=== PATIENT | female | born 1950 | race Caucasian/White ===

== ENCOUNTER → 2017-08-30 13:24 | Outpatient (CLI) | payer OTHER, SELFPAY ==
[2017-08-30 14:25] LABS: Add Manual Diff / Slide Review NO; Basophils Percent Auto 0.9 % (0-2); Eosinophils Percent Auto 3.3 % (2-4); Hematocrit 39.2 % (36-46); Hemoglobin 13.2 g/dL (12.0-16.0); Lymphocytes Percent Auto 17.7 % (25-40); Mean Corpuscular HGB Conc 33.8 % (30-36); Mean Corpuscular Hemoglobin 29.8 PG (26-34); Mean Corpuscular Volume 88.4 fL (80-100); Monocytes Percent Auto 9.9 % (3-14); Neutrophils Absolute Auto 4400 /uL (3000-5900); Neutrophils Percent Auto 68.2 % (50-75); Platelet Count 315 X10^3/uL (150-400); Red Blood Cell Count 4.44 X10^6/uL (4.0-5.2); Red Cell Distribution Width 13.2 % (11.6-14.8); White Blood Cell Count 6.4 X10^3/uL (4.5-11.0)
[2017-08-30 14:48] LABS: Alanine Aminotransferase 28 IU/L (9-52); Albumin 4.4 g/dL (3.5-5.0); Albumin Globulin Ratio 1.6 (1.0-2.8); Alkaline Phosphatase 91 U/L (38-126); Amylase 73 U/L (30-110); Aspartate Aminotransferase 24 IU/L (14-36); BUN Creatinine Ratio 21.3 (6-22); Bilirubin Total 0.3 mg/dL (0.2-1.3); Calcium 9.3 mg/dL (8.4-10.2); Estimated Glomerular Filt Rate > 60.0 mL/min (>60); Globulin 2.7 g/dL (1.7-4.1); Glucose 88 mg/dL (80-110); HEMOLYSIS < 15 (0-50); Lipase 114 U/L (23-300); Potassium 4.3 mmol/L (3.4-5.1); Sodium 141 mmol/L (137-145); Total Protein 7.1 g/dL (6.3-8.2)
[2017-09-03 13:01] LABS: Urea Breath Test >18YRS Not Detected
== END ==
PROVIDERS: Family Provider Family Medicine; PCP Family Medicine; Visit Provider Family Medicine
DX: R10.11 Right upper quadrant pain (principal)
CPT/HCPCS: 36415; 80053; 82150; 83013; 83690; 85025

== ENCOUNTER → 2017-09-06 13:10 | Outpatient (CLI) | payer OTHER, SELFPAY ==
--- NOTE | 2017-09-06 13:11 | DI.US.S_ITS ---
PROCEDURE: US ABDOMEN COMPLETE INDICATIONS: RIGHT UPPER QUADRANT ABDOMINAL PAIN TECHNIQUE: Real-time scanning was performed of the abdominal and retroperitoneal organs, with image documentation. COMPARISON: None. FINDINGS: Liver: Liver is normal in size and homogeneous in echotexture. Gallbladder: There is has multiple calculi within its lumen Biliary ducts: Intrahepatic bile ducts are non-dilated. Extrahepatic bile duct caliber measures 4.0 mm. Normal is 6-7 mm or less in diameter, or 10 mm or less post-cholecystectomy. Pancreas: Visualized portions of the pancreas are sonographically normal. Spleen: Spleen is normal in size and homogeneous in echotexture. Kidneys: Kidneys are normal in size and echotexture. Right kidney measures 8.7 cm long; left kidney measures 9.6 cm long. No hydronephrosis or nephrolithiasis. No solid masses. Aorta: Visualized aorta is normal in caliber at less than 3 cm. Iliacs: Proximal common iliac arteries are normal in caliber at less than 2.5 cm. IVC: Intrahepatic inferior vena cava is patent. Miscellaneous: No free abdominal fluid. IMPRESSION: 1. Cholelithiasis. No evidence of cholecystitis. 2. No acute process. Dictated by: Heriberto Shaffer M.D. on 09/06/2017 at 15:32 Approved by: Heriberto Shaffer M.D. on 09/06/2017 at 15:33
== END ==
PROVIDERS: Family Provider Family Medicine; PCP Family Medicine; Visit Provider Family Medicine
DX: K80.20 Calculus of gallbladder without cholecystitis without obstruction (principal)
CPT/HCPCS: 76700

== ENCOUNTER → 2017-10-22 11:13 | Outpatient (CLI) | payer MEDICARE, OTHER, SELFPAY ==
--- NOTE | 2017-10-22 | DI.MG.S_ITS ---
BILATERAL DIGITAL SCREENING MAMMOGRAM 3D/2D WITH CAD: 10/22/2017 CLINICAL: Routine screening. Comparison is made to exams dated: 09/12/2016 mammogram, 09/21/2015 mammogram, 03/04/2015 mammogram, and 02/15/2015 mammogram - [facility]. The tissue of both breasts is heterogeneously dense. This may lower the sensitivity of mammography. Current study was also evaluated with a Computer Aided Detection (CAD) system. No significant masses, calcifications, or other findings are seen in either breast. There has been no significant interval change. IMPRESSION: NEGATIVE There is no mammographic evidence of malignancy. A 1 year screening mammogram is recommended. This exam was interpreted at Station ID: [id number]. NOTE: For mammograms, a report in lay terms will be sent to the patient. Approximately 15% of breast malignancies will not be visualized mammographically. In the management of a palpable breast mass, a negative mammogram must not discourage biopsy of a clinically suspicious lesion. Electronically Signed By: Raciel hinton/andre:10/22/2017 16:06:58 copy to: Patricia Kumar letter sent: Normal Exam ACR BI-RADS Category 1: Negative [id number]
== END ==
PROVIDERS: Family Provider Family Medicine; PCP Family Medicine; Visit Provider Family Medicine
DX: Z12.31 Encounter for screening mammogram for malignant neoplasm of breast (principal)
CPT/HCPCS: 77063; 77067

== ENCOUNTER → 2017-11-07 12:34 | Outpatient (CLI) | payer MEDICARE, OTHER, SELFPAY ==
[2017-11-07 13:53] LABS: Cholesterol 175 mg/dL (140-199); HDL Cholesterol 42 mg/dL (40-60); LDL Cholesterol Calculated 83 mg/dL (<100); Triglycerides 252 mg/dL (35-150)
== END ==
PROVIDERS: Family Provider Family Medicine; PCP Family Medicine; Visit Provider Family Medicine
DX: E78.5 Hyperlipidemia, unspecified (principal)
CPT/HCPCS: 36415; 80061

== ENCOUNTER → 2018-07-01 14:10 | Outpatient (CLI) | payer MEDICARE, OTHER, SELFPAY ==
--- NOTE | 2018-07-01 14:31 | DI.CT.S_ITS ---
PROCEDURE: CT SINUS SCREEN WO CON INDICATIONS: Chronic sinusitis TECHNIQUE: Noncontrast 3.0 mm axial images acquired from the frontal sinuses to the mid-sella, with coronal and sagittal reformats. For radiation dose reduction, the following was used: automated exposure control, adjustment of mA and/or kV according to patient size. COMPARISON: None. FINDINGS: Image quality: Excellent. Maxillary Sinuses: No bony remodeling or destruction. Sinuses are clear. Ethmoid Air Cells: No bony remodeling or destruction. Sinuses are clear. Sphenoid Sinuses: No bony remodeling or destruction. Sinuses are clear. Frontal Sinuses: No bony remodeling or destruction. Left frontal sinus clear. Hypoplastic right frontal sinus. Ostiomeatal Complexes: Ostiomeatal complexes are patent. No Pat cells. Miscellaneous: Visualized intra-orbital contents are normal. No fahad bullosa or paradoxical turbinate curvature. Slight leftward nasal septal deviation. IMPRESSION: Clear sinuses. Dictated by: Joshua Giordano M.D. on 07/01/2018 at 17:19 Approved by: Joshua Giordano M.D. on 07/01/2018 at 17:21
== END ==
PROVIDERS: PCP Family Medicine; Visit Provider Family Medicine
DX: J32.9 Chronic sinusitis, unspecified (principal); J32.0 Chronic maxillary sinusitis
CPT/HCPCS: 70486

== ENCOUNTER → 2018-07-31 15:23 | Outpatient (CLI) | payer MEDICARE, OTHER, SELFPAY ==
--- NOTE | 2018-07-31 15:27 | DI.RAD.S_ITS ---
PROCEDURE: XR CHEST 2V INDICATIONS: cough TECHNIQUE: 2 views of the chest were acquired. COMPARISON: None. FINDINGS: Surgical changes and devices: None. Lungs and pleura: Lungs are clear. No pleural effusions or pneumothorax. Mediastinum: Mediastinal contours are normal. Heart size is normal. Bones and chest wall: No suspicious bony abnormalities. Soft tissues appear unremarkable. IMPRESSION: Normal for age, source of current cuff symptoms is not seen. Dictated by: Rhett Stockton M.D. on 07/31/2018 at 15:54 Approved by: Rhett Stockton M.D. on 07/31/2018 at 15:54
[2018-07-31 16:11] LABS: Add Manual Diff / Slide Review NO; Basophils Absolute Auto 100 /uL (0-100); Basophils Percent Auto 0.9 % (0-2); Eosinophils Absolute Auto 200 /uL (0-450); Eosinophils Percent Auto 2.4 % (2-4); Hematocrit 38.8 % (36-46); Hemoglobin 12.9 g/dL (12.0-16.0); Lymphocytes Absolute Auto 1200 /uL (1100-4500); Mean Corpuscular HGB Conc 33.1 % (30-36); Mean Corpuscular Hemoglobin 29.6 PG (26-34); Mean Corpuscular Volume 89.3 fL (80-100); Monocytes Absolute Auto 700 /uL (0-900); Monocytes Percent Auto 8.3 % (3-14); Neutrophils Absolute Auto 6200 /uL (1500-7000); Neutrophils Percent Auto 74.4 % (50-75); Platelet Count 332 X10^3/uL (150-400); Red Blood Cell Count 4.35 X10^6/uL (4.0-5.2); Red Cell Distribution Width 13.4 % (11.6-14.8); White Blood Cell Count 8.3 X10^3/uL (4.5-11.0)
[2018-07-31 17:01] LABS: Alanine Aminotransferase 23 IU/L (9-52); Albumin 4.4 g/dL (3.5-5.0); Albumin Globulin Ratio 1.8 (1.0-2.8); Alkaline Phosphatase 79 U/L (38-126); Aspartate Aminotransferase 23 IU/L (14-36); Bilirubin Total 0.4 mg/dL (0.2-1.3); Blood Urea Nitrogen 16 mg/dL (7-17); Calcium 9.4 mg/dL (8.4-10.2); Carbon Dioxide 26 mmol/L (22-32); Chloride 104 mmol/L (98-107); Estimated Glomerular Filt Rate > 60.0 mL/min (>60); Globulin 2.5 g/dL (1.7-4.1); Glucose 88 mg/dL (80-110); HEMOLYSIS < 15 (0-50); Potassium 4.6 mmol/L (3.4-5.1); Sodium 139 mmol/L (137-145); Total Protein 6.9 g/dL (6.3-8.2)
[2018-07-31 17:32] LABS: Thyroid Stimulating Hormone 2.96 uIU/mL (0.47-4.68)
== END ==
PROVIDERS: PCP Family Medicine; Visit Provider Family Medicine
DX: R05 Cough (principal)
CPT/HCPCS: 36415; 71046; 80053; 84443; 85025

== ENCOUNTER → 2018-09-23 10:03 | Outpatient (CLI) | payer MEDICARE, OTHER, SELFPAY ==
[2018-09-23 10:42] LABS: Add Manual Diff / Slide Review NO; Basophils Absolute Auto 100 /uL (0-100); Eosinophils Absolute Auto 200 /uL (0-450); Eosinophils Percent Auto 2.5 % (2-4); Hematocrit 39.3 % (36-46); Hemoglobin 13.2 g/dL (12.0-16.0); Lymphocytes Absolute Auto 900 /uL (1100-4500); Lymphocytes Percent Auto 14.6 % (25-40); Mean Corpuscular HGB Conc 33.5 % (30-36); Mean Corpuscular Hemoglobin 29.8 PG (26-34); Monocytes Absolute Auto 600 /uL (0-900); Monocytes Percent Auto 9.4 % (3-14); Neutrophils Absolute Auto 4700 /uL (1500-7000); Neutrophils Percent Auto 72.5 % (50-75); Platelet Count 320 X10^3/uL (150-400); Red Blood Cell Count 4.41 X10^6/uL (4.0-5.2); Red Cell Distribution Width 13.3 % (11.6-14.8); White Blood Cell Count 6.5 X10^3/uL (4.5-11.0)
[2018-09-23 10:49] LABS: Monotest Negative (Negative)
[2018-09-23 11:04] LABS: Alanine Aminotransferase 27 IU/L (9-52); Albumin 4.4 g/dL (3.5-5.0); Albumin Globulin Ratio 1.7 (1.0-2.8); Alkaline Phosphatase 84 U/L (38-126); Aspartate Aminotransferase 25 IU/L (14-36); BUN Creatinine Ratio 18.9 (6-22); Bilirubin Total 0.5 mg/dL (0.2-1.3); Blood Urea Nitrogen 17 mg/dL (7-17); Calcium 9.4 mg/dL (8.4-10.2); Carbon Dioxide 29 mmol/L (22-32); Chloride 102 mmol/L (98-107); Estimated Glomerular Filt Rate > 60.0 mL/min (>60); Globulin 2.6 g/dL (1.7-4.1); Glucose 93 mg/dL (80-110); HEMOLYSIS < 15 (0-50); Potassium 4.1 mmol/L (3.4-5.1); Sodium 138 mmol/L (137-145)
[2018-09-23 11:05] LABS: C-Reactive Protein Quant < 0.5 mg/dL (<1.0); Rheumatoid Factor < 8.6 IU/mL (<12.0)
[2018-09-23 11:08] LABS: Erythrocyte Sedimentation Rate 5 MM/HR (0-20)
[2018-09-26 20:02] LABS: ANA Screen, IFA Positive (Negative)
== END ==
PROVIDERS: PCP Family Medicine; Visit Provider Family Medicine
DX: R59.1 Generalized enlarged lymph nodes (principal)
CPT/HCPCS: 36415; 80053; 85025; 85651; 86038; 86140; 86318; 86430

== ENCOUNTER → 2018-10-24 15:23 | Outpatient (CLI) | payer MEDICARE, OTHER, SELFPAY ==
--- NOTE | 2018-10-24 | DI.MG.S_ITS ---
BILATERAL DIGITAL SCREENING MAMMOGRAM 3D/2D WITH CAD: 10/24/2018 CLINICAL: Routine screening. Comparison is made to exams dated: 10/22/2017 mammogram, 09/12/2016 mammogram, and 02/15/2015 mammogram - [facility]. There are scattered fibroglandular elements in both breasts. Current study was also evaluated with a Computer Aided Detection (CAD) system. No significant masses, calcifications, or other findings are seen in either breast. There has been no significant interval change. IMPRESSION: NEGATIVE There is no mammographic evidence of malignancy. A 1 year screening mammogram is recommended. This exam was interpreted at Station ID: [id number]. NOTE: For mammograms, a report in lay terms will be sent to the patient. Approximately 15% of breast malignancies will not be visualized mammographically. In the management of a palpable breast mass, a negative mammogram must not discourage biopsy of a clinically suspicious lesion. Electronically Signed By: Jules miller/andre:10/24/2018 18:59:19 copy to: Patricia Kumar letter sent: Normal Exam ACR BI-RADS Category 1: Negative [id number]
== END ==
PROVIDERS: PCP Family Medicine; Visit Provider Family Medicine
DX: Z12.31 Encounter for screening mammogram for malignant neoplasm of breast (principal)
CPT/HCPCS: 77063; 77067

== ENCOUNTER 2019-07-17 00:59 | Emergency (ER) | payer MEDICARE, OTHER, SELFPAY ==
--- NOTE | 2019-07-17 01:00 | ED_ITS ---
HPI - Skin/Abscess/Foreign Bdy General Chief complaint: Extremity Problem,Nontraumatic Stated complaint: cellulitis infection Time Seen by Provider: 07/17/19 01:00 Source: patient Mode of arrival: Ambulatory Limitations: no limitations History of Present Illness HPI narrative: 68-year-old female nonsmoker with noncontributory medical history presents by herself a chief complaint redness, pain and swelling in her right thumb. She denies any injury and states that she was seen at the walk-in clinic today and diagnosed with cellulitis, placed on doxycycline of which she has had 1 dose. She refused an x-ray earlier today and was encouraged to return or come to the emergency department for worsening symptoms. She denies any systemic findings such as fever, chills nor nausea or vomiting. She denies any history of the same. She states that she had a crack in the skin in the tip of her thumb about a week or so ago. She complains of increasing pain with range of motion and improvement with rest. She is able to flex and move her but is limited by the swelling. She states she was preparing to go to bed but was worried that it was getting worse and came to see us MD complaint: other Onset (ago): day(s) Tetanus up to date: yes Location: R hand Severity: mild Quality: aching Pain Consistency: constant Relieving factors: immobilization Exacerbating factors: palpation and movement Context: recent antibiotic Associated symptoms: denies other symptoms Treatments prior to arrival: antibiotic and NSAID Related Data Home Medications Medication Instructions Recorded Confirmed dorzolamide 2 % eye drops OPHTHALMIC (EYE) BID ml 11/07/17 07/16/19 ibuprofen 200 mg capsule 400 mg PO .HS cap 11/07/17 07/16/19 metronidazole 1 % topical gel TOP #180 gram 07/31/18 07/16/19 trazodone 50 mg tablet 50 mg PO BEDTIME PRN tab 12/06/18 07/16/19 Previous Rx's Medication Instructions Recorded azelastine 137 mcg (0.1 %) nasal 1 spray NASAL BID #30 ml 02/12/19 spray aerosol Climara 0.05 mg/24 hr transdermal See Rx Instructions .ROUTE 07/15/19 patch .COMPLEX #12 each NS doxycycline hyclate 100 mg capsule 100 mg PO BID 7 Days #14 cap 07/16/19 Allergies Allergy/AdvReac Type Severity Reaction Status Date / Time codeine [CODEINE] Allergy Mild NAUSEA Verified 07/16/19 16:44 Sulfa (Sulfonamide Allergy Mild RASH Verified 07/16/19 16:44 Antibiotics) [SULFA (SULFONAMIDE ANTIBIOTICS)] Review of Systems Constitutional Constitutional: Denies chills, Denies fatigue, Denies fever(s), Denies frequent falls, Denies lethargy and Denies weakness Eyes Eyes: Denies change in vision, Denies eye discharge, Denies irritation and Denies loss of vision ENT Ears, Nose, Mouth, and Throat: Denies change in voice, Denies dizziness, Denies neck pain, Denies sore throat and Denies throat swelling Cardiovascular Cardiovascular: Denies chest pain, Denies irregular heart rhythm, Denies lightheadedness, Denies palpitations, Denies dyspnea, Denies dyspnea on exertion and Denies orthopnea Respiratory Respiratory: Denies cough, Denies dyspnea, Denies dyspnea on exertion and Denies wheezing Gastrointestinal Gastrointestinal: Denies abdominal pain, Denies change in bowel habits, Denies diarrhea, Denies nausea and Denies vomiting Genitourinary Genitourinary: Denies hematuria, Denies flank pain, Denies urinary incontinence and Denies urinary urgency Musculoskeletal Musculoskeletal: Denies back pain, Denies muscle weakness, Denies neck pain, Denies numbness and Denies tingling Integumentary/Breasts Skin/Breast: Denies pruritus, Reports erythema, Denies rash, Reports skin pain, Reports skin swelling and Denies wounds Neurologic Neurologic: Denies behavioral changes, Denies confusion, Denies dizziness, Denies frequent falls, Denies loss of vision, Denies numbness, Denies tingling and Denies weakness Psychiatric Psychiatric: Denies anxiety, Denies behavioral changes, Denies confusion, Denies depression, Denies homicidal ideation and Denies suicidal ideation Endocrine Endocrine: Denies fatigue, Denies flushing and Denies palpitations Hematologic/Lymphatic Hematologic/Lymphatic: Denies easy bruising Allergic/Immunologic Allergic/Immunologic: Denies urticaria, Denies throat swelling and Denies wheezing Patient History Medical History Cellulitis (Acute) Chicken pox (Resolved ~1959) Frequent UTI (Chronic ~1972) Glaucoma (Chronic ~2012) Hay fever (Chronic ~2003) Interstitial cystitis (Chronic ~1969) Measles (Resolved ~1959) Neck pain (Chronic ~2013) Ovarian cyst (Chronic ~1979) Pain of right thumb (Acute) Pneumothorax (Chronic) Raynauds disease (Chronic ~2011) Recurrent sinusitis (Chronic ~1995) Skin cancer, basal cell (Chronic ~2009) Surgical History History of bilateral salpingo-oophorectomy (BSO) History of tonsillectomy Status post appendectomy Status post dilation and curettage Status post dilation and curettage Status post dilation and curettage Status post hysterectomy Status post tubal ligation Family History Brother Age: 72 Multiple myeloma Agent orange exposure Father Arthritis Dementia Mother Mental health problem Alcoholism Social History Smoking Status: Never smoker alcohol intake: never substance use type: does not use Smoking Status: Never smoker Exam Narrative Exam Narrative: GEN: 68F appears younger than stated age, she is AOx3 and in mild distress. Obviously anxious. EYES: Pupils are equal, round, and reactive to light and accommodation. Extraoccular muscles are intact bilaterally. There is no subconjunctival hemorrhage or exudate. CHEST: Lungs are clear to auscultation bilaterally and free of wheezes, rales, or rhonchi. Heart rate is regular rhythm, there are no murmurs, clicks, rubs, or gallops. There is no chest wall tenderness. ABD: Abdomen is soft and nontender. There is no guarding or rebound. Bowel sounds are normal in all 4 quadrants. There is no mass or organomegaly. EXT: Right thumb with some pain, mild erythema, and moderate swelling. She has no pain along distribution of flexor tendon. No pain to palpation of palmar surface. Painless flexion of thumb, full ROM limited by swelling. No obvious break in the skin, no induration or fluctuance. No pain on passive extention. No sausage finger. SKIN: Warm, pink, and dry. No erythema or rash Initial Vital Signs Initial Vital Signs: Vital Signs Temperature 98.2 F 07/17/19 01:04 Pulse Rate 100 H 07/17/19 01:04 Respiratory Rate 18 07/17/19 01:04 Blood Pressure 225/107 H 07/17/19 01:04 Pulse Oximetry 98 07/17/19 01:04 Course Orders Ordered: ED Orders 07/17/19 01:06 XR finger RT min 2V Stat 07/17/19 01:15 Basic Metabolic Panel Stat C-Reactive Protein Quant Stat Complete Blood Count AUTO DIFF Stat Erythrocyte Sedimentation Rate Stat Uric Acid Stat Discontinued Medications Ibuprofen (Advil) 800 mg PO NOW ONE Stop: 07/17/19 01:08 Last Admin: 07/17/19 01:11 Dose: 800 mg Documented by: RAIZA Vital Signs Vital signs: Vital Signs - 8 hr 07/17/19 01:04 07/17/19 02:27 Temperature 98.2 F Pulse Rate 100 H 88 Respiratory Rate 18 18 Blood Pressure 225/107 H 170/74 H Pulse Oximetry 98 98 MDM - Skin/Abscess/Foreign Bdy Lab Data Result diagrams: 07/17/19 01:15 07/17/19 01:15 Labs: Lab Results 07/17/19 07/17/19 Range/Units 01:15 01:15 WBC 7.9 (4.5-11.0) X10^3/uL RBC 4.21 (4.0-5.2) X10^6/uL Hgb 12.6 (12.0-16.0) g/dL Hct 37.6 (36-46) % MCV 89.2 (80-100) fL MCH 29.8 (26-34) PG MCHC 33.4 (30-36) % RDW 13.6 (11.6-14.8) % Plt Count 267 (150-400) X10^3/uL Neut % (Auto) 69.6 (50-75) % Lymph % (Auto) 14.6 L (25-40) % [place] % (Auto) 12.1 (3-14) % Eos % (Auto) 3.1 (2-4) % Baso % (Auto) 0.6 (0-2) % Neut # (Auto) 5500 (5030-1121) /uL Lymph # (Auto) 1100 (5490-9657) /uL [place] # (Auto) 1000 H (0-900) /uL Eos # (Auto) 200 (0-450) /uL Baso # (Auto) 0 (0-100) /uL ESR 10 (0-20) MM/HR Sodium 138 (137-145) mmol/L Potassium 3.6 (3.4-5.1) mmol/L Chloride 105 (98-107) mmol/L Carbon Dioxide 26 (22-32) mmol/L BUN 20 H (7-17) mg/dL Creatinine 0.82 (0.52-1.04) mg/dL Estimated GFR > 60.0 (>60) mL/min BUN/Creatinine Ratio 24.4 H (6-22) Glucose 109 (80-110) mg/dL Uric Acid 4.0 (2.5-6.2) mg/dL Calcium 9.6 (8.4-10.2) mg/dL C-Reactive Protein 1.0 (<1.0) mg/dL Imaging Data Extremity x-ray #1: Attestation: I personally reviewed and interpreted this imaging study as follows: My Impression: No obvious findings consistent with osteo MDM Narrative Medical decision making narrative: Multiple etiologies for patient's symptoms considered including: [flexor tenosynovitis considered but thought less likely given lack of exam findings, cellulitis considered most likely given exam. Gouty arthritis] Patient's symptoms improved or duration of stay with above-stated therapies. Findings and discharge diagnosis discussed with patient/family followed by verb alization of understanding Return precautions discussed with patient/family whom verbalize understanding. Discharge Plan Departure Patient Disposition: Home Clinical Impression: Pain of right thumb Cellulitis Qualifiers: Site of cellulitis: extremity Site of cellulitis of extremity: finger Laterality: right Qualified Code(s): L03.011 - Cellulitis of right finger Discharge Date/Time: 07/17/19 02:29 Instructions: DI for Cellulitis -- Adult Activity Restrictions/Additional Instructions: *You have been diagnosed with [cellulitis of right thumb] *What to do: *Continue ot take medications as directed *Follow up with your primary care provider in 2-3 days, call for an appointment. Let them know you were seen in the Emergency Department and that we ask that you be seen in follow up *Return to ER if you should have any new, worsening or concerning symptoms, such as [fever, shaking chills, nausea/vomiting, shortness of breath, worsening pain and swelling of your thumb, or other bothersome symptoms ] Prescriptions: No Action doxycycline hyclate 100 mg capsule 100 mg PO BID 7 Days Qty: 14 RF: 0 azelastine 137 mcg (0.1 %) aerosol,spray 1 spray NASAL BID Qty: 30 RF: 1 estradiol [Climara] 0.05 mg/24 hr patch weekly See Rx Instructions .ROUTE .COMPLEX Qty: 12 RF: 3 metronidazole 1 % gel TOP Qty: 180 RF: 0 trazodone 50 mg tablet 50 mg PO BEDTIME PRNRF: 0 dorzolamide 2 % drops ophthalmic (eye) BID RF: 0 ibuprofen 200 mg capsule 400 mg PO .HS RF: 0 Referrals: Santino Kumar MD [Primary Care Provider] -
[2019-07-17 01:04] VITALS: BP 225/107; PULSE 100; RESP 18; TEMP 36.8; O2SAT 98
--- NOTE | 2019-07-17 01:06 | DI.RAD.S_ITS ---
PROCEDURE: XR FINGER RT MIN 2V INDICATIONS: thumb pain, redness, osteo? TECHNIQUE: AP hand, 2 views of the first finger(s) acquired. COMPARISON: None. FINDINGS: Bones: No fractures or dislocations. No suspicious bony lesions. No underlying osteomyelitis or foreign body is seen. Mild soft tissue swelling over the thumb Soft tissues: No suspicious soft tissue calcifications. IMPRESSION: Mild soft tissue swelling over the thumb, no osteomyelitis or foreign body seen. 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 Dictated by: Rhett Stockton M.D. on 07/17/2019 at 8:21 Approved by: Rhett Stockton M.D. on 07/17/2019 at 8:22
[2019-07-17] MEDS: IBUPROFEN 400 MG TABLET 800 MG PO (01:11)
[2019-07-17 01:32] LABS: Add Manual Diff / Slide Review NO; Basophils Absolute Auto 0 /uL (0-100); Basophils Percent Auto 0.6 % (0-2); Eosinophils Absolute Auto 200 /uL (0-450); Eosinophils Percent Auto 3.1 % (2-4); Hematocrit 37.6 % (36-46); Hemoglobin 12.6 g/dL (12.0-16.0); Lymphocytes Absolute Auto 1100 /uL (1100-4500); Lymphocytes Percent Auto 14.6 % (25-40); Mean Corpuscular HGB Conc 33.4 % (30-36); Mean Corpuscular Hemoglobin 29.8 PG (26-34); Mean Corpuscular Volume 89.2 fL (80-100); Monocytes Absolute Auto 1000 /uL (0-900); Monocytes Percent Auto 12.1 % (3-14); Neutrophils Absolute Auto 5500 /uL (1500-7000); Neutrophils Percent Auto 69.6 % (50-75); Platelet Count 267 X10^3/uL (150-400); Red Blood Cell Count 4.21 X10^6/uL (4.0-5.2); Red Cell Distribution Width 13.6 % (11.6-14.8); White Blood Cell Count 7.9 X10^3/uL (4.5-11.0)
[2019-07-17 01:45] LABS: BUN Creatinine Ratio 24.4 (6-22); Blood Urea Nitrogen 20 mg/dL (7-17); Calcium 9.6 mg/dL (8.4-10.2); Carbon Dioxide 26 mmol/L (22-32); Chloride 105 mmol/L (98-107); Estimated Glomerular Filt Rate > 60.0 mL/min (>60); Glucose 109 mg/dL (80-110); HEMOLYSIS < 15 (0-50); Potassium 3.6 mmol/L (3.4-5.1); Sodium 138 mmol/L (137-145)
[2019-07-17 01:51] LABS: Erythrocyte Sedimentation Rate 10 MM/HR (0-20)
[2019-07-17 02:27] VITALS: BP 170/74; PULSE 88; RESP 18; O2SAT 98
== END 2019-07-17 02:29 | disposition home or self-care (01) ==
PROVIDERS: Emergency Provider Emergency Medicine; PCP Family Medicine
DX: L03.011 Cellulitis of right finger (principal); M79.644 Pain in right finger(s)
CPT/HCPCS: 36415; 73140; 80048; 84550; 85025; 85651; 86140; 99284

== ENCOUNTER 2019-07-18 05:10 | Inpatient (IN) | payer MEDICARE, OTHER, SELFPAY ==
[2019-07-18] VITALS (7 sets, daily range): BP systolic 157–181; BP diastolic 76–91; PULSE 70–92; RESP 14–16; TEMP 36.4–37.2; O2SAT 94–99; BMI 25.0; BMI 24.7
--- NOTE | 2019-07-18 05:12 | DI.CT.S_ITS ---
PROCEDURE: CT UE RT W CON INDICATIONS: worsening pain swelling hand/wrist, abscess vs. cellulitis TECHNIQUE: After the administration of intravenous contrast, 3 mm axial sections acquired of the right forearm and wrist extending into the hand area, with coronal and sagittal reformats. COMPARISON: [facility], CR, XR FINGER RT MIN 2V, 07/17/2019, 1:10. FINDINGS: Image quality: Excellent. Bones: No trauma or osteomyelitis found. Soft tissues: There is edema within the volar across the wrist are involving the flexor tendons, producing increased radiodensity within the flexor tendon sheaths and indistinct margination between individual sheath in the flexor compartment. No rim-enhancing fluid collection suggestive of osteomyelitis is found. IMPRESSION: Flexor compartment inflammatory changes at the distal forearm and wrist, without abscess formation, foreign body, or adjacent osteomyelitis. Dictated by: Rhett Stockton M.D. on 07/18/2019 at 8:17 Approved by: Rhett Stockton M.D. on 07/18/2019 at 8:21
--- NOTE | 2019-07-18 05:16 | ED_ITS ---
HPI - Skin/Abscess/Foreign Bdy General Chief complaint: Extremity Injury, Upper Stated complaint: cellulitis infection Time Seen by Provider: 07/18/19 05:10 Source: patient Mode of arrival: Ambulatory Limitations: no limitations History of Present Illness HPI narrative: 68F nonsmoker returns for re-evaluation of R thumb and hand pain, redness, and swelling. She was seen in the walk in clinic on and was di agnosed with cellulitis of her R thumb. She is R handed. She had a crack in the skin of her thumb a week or so prior. She was put on Doxycycline and given return precautions. She was seen her in the ED yesterday morning and had labs drawn and an Xray. Findings were reassuring and she had no signs of osteomyelitis or tenosynovitis. She was given return precautions. She returns stating that her thumb and wrist are more swollen and painful. Though not held in flexion, she does have increased swelling and painful passive range of motion and increased pain along distribution of flexor tendon. She has increased pain and swelling on volar aspect of wrist. She's had no fever, but admits to chills last night and the pain keeps her up. Last liquids and last food at MD complaint: abscess/boil Onset (ago): day(s) Tetanus up to date: yes Location: R hand Severity: moderate Quality: aching Pain Consistency: constant Relieving factors: rest Exacerbating factors: palpation and movement Associated symptoms: chills Treatments prior to arrival: antibiotic Related Data Home Medications Medication Instructions Recorded Confirmed dorzolamide 2 % eye drops 1 drp OPHTHALMIC (EYE) BID ml 11/07/17 07/18/19 ibuprofen 200 mg capsule 400 mg PO .HS cap 11/07/17 07/18/19 metronidazole 1 % topical gel 1 applic TOP PRN PRN #180 gram 07/31/18 07/18/19 trazodone 50 mg tablet 50 mg PO BEDTIME PRN tab 12/06/18 07/18/19 azelastine 1 spray NASAL BID PRN 07/18/19 07/18/19 Previous Rx's Medication Instructions Recorded Climara 0.05 mg/24 hr transdermal See Rx Instructions .ROUTE 07/15/19 patch .COMPLEX #12 each NS doxycycline hyclate 100 mg capsule 100 mg PO BID 7 Days #14 cap 04/01/20 Allergies Allergy/AdvReac Type Severity Reaction Status Date / Time Sulfa (Sulfonamide Allergy Mild RASH Verified 07/18/19 08:51 Antibiotics) [SULFA (SULFONAMIDE ANTIBIOTICS)] codeine [CODEINE] AdvReac Mild NAUSEA Verified 07/18/19 17:26 Review of Systems Constitutional Constitutional: Reports chills, Denies fatigue, Denies fever(s), Denies frequent falls, Denies lethargy and Denies weakness Eyes Eyes: Denies change in vision, Denies eye discharge, Denies irritation and Denies loss of vision ENT Ears, Nose, Mouth, and Throat: Denies change in voice, Denies dizziness, Denies neck pain, Denies sore throat and Denies throat swelling Cardiovascular Cardiovascular: Denies chest pain, Denies irregular heart rhythm, Denies li ghtheadedness, Denies palpitations, Denies dyspnea, Denies dyspnea on exertion and Denies orthopnea Respiratory Respiratory: Denies cough, Denies dyspnea, Denies dyspnea on exertion and Denies wheezing Gastrointestinal Gastrointestinal: Denies abdominal pain, Denies change in bowel habits, Denies diarrhea, Denies nausea and Denies vomiting Genitourinary Genitourinary: Denies hematuria, Denies flank pain, Denies urinary incontinence and Denies urinary urgency Musculoskeletal Musculoskeletal: Denies back pain, Reports joint swelling, Reports limited range of motion, Denies muscle weakness, Denies neck pain, Denies numbness and Denies tingling Integumentary/Breasts Skin/Breast: Denies pruritus, Reports erythema, Denies rash, Reports skin pain, Reports skin swelling and Denies wounds Neurologic Neurologic: Denies behavioral changes, Denies confusion, Denies dizziness, Denies frequent falls, Denies loss of vision, Denies numbness, Denies tingling and Denies weakness Psychiatric Psychiatric: Denies anxiety, Denies behavioral changes, Denies confusion, Denies depression, Denies homicidal ideation and Denies suicidal ideation Endocrine Endocrine: Denies fatigue, Denies flushing and Denies palpitations Hematologic/Lymphatic Hematologic/Lymphatic: Denies easy bruising Allergic/Immunologic Allergic/Immunologic: Denies urticaria, Denies throat swelling and Denies wheezing Patient History Medical History Cellulitis (Acute) Chicken pox (Resolved ~1959) Frequent UTI (Chronic ~1972) Glaucoma (Chronic ~2012) Hay fever (Chronic ~2003) Interstitial cystitis (Chronic ~1969) Measles (Resolved ~1959) Neck pain (Chronic ~2013) Osteoarthritis (Acute) Ovarian cyst (Chronic ~1979) Pain of right thumb (Acute) Pneumothorax (Chronic) Raynauds disease (Chronic ~2011) Recurrent sinusitis (Chronic ~1995) Skin cancer, basal cell (Chronic ~2009) Surgical History History of bilateral salpingo-oophorectomy (BSO) History of tonsillectomy Status post appendectomy Status post dilation and curettage Status post dilation and curettage Status post dilation and curettage Status post hysterectomy Status post tubal ligation Family History Brother Age: 72 Multiple myeloma Agent orange exposure Father Arthritis Dementia Mother Mental health problem Alcoholism Social History household members: spouse Smoking Status: Never smoker alcohol intake: never substance use type: does not use Smoking Status: Never smoker Substance Use Type: does not use Exam Narrative Exam Narrative: GENERAL: [68] year old patient appears stated age. Well- nourished, well-developed patient, in mild distress. HEAD: Atraumatic. Normocephalic. EYES: Pupils equal round and reactive. Extraocular motions intact. No scleral icterus. No injection or drainage. ENT: Nose without bleeding, purulent drainage. Throat without erythema, tonsillar hypertrophy or exudate. Airway patent. NECK: Trachea midline. Non tender CARDIOVASCULAR: Regular rate and rhythm without murmurs, gallops, or rubs. RESPIRATORY: Clear to auscultation. Breath sounds equal bilaterally. No wheezes, rales, or rhonchi. GASTROINTESTINAL: Abdomen soft, non-tender, nondistended. EXTREMITIES: Increased swelling of right thumb with pain along distribution of flexor tendon. It is red, warm and significantly tender to palpation. She has increased pain with passive extension. No edema or joint tenderness. BACK: Nontender without deformity or crepitance. No flank tenderness. NEURO: AOx3. SKIN: Redness and warmth of right including thenar eminence and about 3 cm of volar aspect wrist overlying the carpal bones. No definite fluctuance. No rash or erythema of visible areas Initial Vital Signs Initial Vital Signs: Vital Signs Temperature 98.4 F 07/18/19 05:16 Pulse Rate 92 H 07/18/19 05:16 Respiratory Rate 14 07/18/19 05:16 Blood Pressure 181/84 H 07/18/19 05:16 Pulse Oximetry 94 07/18/19 05:16 Course Orders Ordered: Acetaminophen (Tylenol) 650 mg PO Q6HR PRN PRN Reason: Fever/Mild Pain (1-3) Last Admin: 07/18/19 16:58 Dose: 650 mg Documented by: Admin: 07/18/19 10:41 Dose: 650 mg Documented by: GEOFFREY Acetaminophen (Tylenol) 650 mg PO Q6HR PRN PRN Reason: Fever/Mild Pain (1-3) Dorzolamide HCl (Trusopt) 1 drops EYE-BOTH BID [facility] Last Admin: 07/18/19 20:59 Dose: Not Given Documented by: DMITRY Hydromorphone HCl (Dilaudid) 0.5 mg IV Q4H PRN PRN Reason: Pain, Severe (7-10) Piperacillin/Tazobactam/Dextrose (Zosyn) 3.375 gm in 50 mls @ 100 mls/hr IV Q6H [facility] Last Infusion: 07/18/19 20:59 Dose: 100 mls/hr Documented by: Admin: 07/18/19 17:57 Dose: 100 mls/hr Documented by: Infusion: 07/18/19 14:06 Dose: 0 mls/hr Documented by: Admin: 07/18/19 13:36 Dose: 100 mls/hr Documented by: GEOFFREY Vancomycin HCl (Vancomycin) 1,000 mg in 200 mls @ 200 mls/hr IV Q24H [facility] Ketorolac Tromethamine (Toradol) 15 mg IV Q6HR PRN PRN Reason: Pain, Moderate (4-6) Stop: 07/23/19 07:09 Last Admin: 07/18/19 17:48 Dose: 15 mg Documented by: Admin: 07/18/19 12:11 Dose: 15 mg Documented by: GEOFFREY Magnesium Hydroxide (Milk Of Magnesia) 30 ml PO DAILY PRN PRN Reason: Constipation Naloxone HCl (Narcan) 0.2 mg IV Q2MIN PRN PRN Reason: Opiate Reversal Ondansetron HCl (Zofran) 4 mg IV Q6HR [facility] Oxycodone HCl (Percolone) 5 mg PO Q4HR PRN PRN Reason: Pain, Moderate (4-6) Last Admin: 07/18/19 17:48 Dose: 5 mg Documented by: BILLYANTJanes Sodium Chloride (Normal Saline 0.9% Flush) 10 ml IV PRN PRN PRN Reason: Flush Last Admin: 07/18/19 18:26 Dose: 10 ml Documented by: BILLYANTZ Sodium Chloride (Normal Saline 0.9% Flush) 10 ml IV BID [facility] Last Admin: 07/18/19 21:08 Dose: Not Given Documented by: DMITRY Trazodone HCl (Desyrel) 50 mg PO BEDTIME PRN PRN Reason: Sleep Vancomycin HCl (Vancomycin Trough) 1 request MISC NOW ONE Stop: 07/21/19 06:31 Discontinued Medications Hydrocodone Bitart/Acetaminophen (Zap 5/325) 1 tab PO Q6HR PRN PRN Reason: Pain, Moderate (4-6) Last Admin: 07/18/19 16:01 Dose: 1 tab Documented by: BILLYANTJanes Sodium Chloride (Normal Saline 0.9%) 1,000 mls @ 125 mls/hr IV CONT [facility] Last Infusion: 07/18/19 07:45 Dose: 0 mls/hr Documented by: Admin: 07/18/19 05:29 Dose: 125 mls/hr Documented by: HECTORFARL Vancomycin HCl/Dextrose (Vancomycin) 1,500 mg in 300 mls @ 200 mls/hr IV NOW ONE Stop: 07/18/19 06:41 Last Infusion: 07/18/19 07:45 Dose: 0 mls/hr Documented by: Admin: 07/18/19 07:02 Dose: 200 mls/hr Documented by: HECTORFARL Lactated Ringer's (Lactated Ringers) 1,000 mls @ 100 mls/hr IV CONT [facility] Last Admin: 07/18/19 08:08 Dose: 100 mls/hr Documented by: ACHEATA Ceftriaxone Sodium/Dextrose (Rocephin) 2 gm in 50 mls @ 100 mls/hr IV NOW ONE Stop: 07/18/19 07:41 Last Admin: 07/18/19 10:39 Dose: Not Given Documented by: GEOFFREY Ceftriaxone Sodium/Dextrose (Rocephin) 2 gm in 50 mls @ 100 mls/hr IV NOW ONE Stop: 07/18/19 10:59 Last Admin: 07/18/19 10:38 Dose: 100 mls/hr Documented by: GEOFFREY Morphine Sulfate (Morphine) 2 mg IV Q4HR PRN PRN Reason: Pain, Moderate (4-6) Ondansetron HCl (Zofran) 4 mg IV Q8HR PRN PRN Reason: Nausea And Vomiting Last Admin: 07/18/19 18:26 Dose: 4 mg Documented by: DMITRY Vancomycin HCl (Vancomycin Per Pharmacy) 1 request MISC NOW ONE Stop: 07/18/19 09:19 Last Admin: 07/18/19 19:15 Dose: Not Given Documented by: DMITRY Consultations Consultation #1: discussion with Dr. Allen, not surgical. Happy to be involved in consultation. Recommends antibiotics, elevation, demarcation of cellulitis Consultation #2: hospitalist happy to accept MDM - Skin/Abscess/Foreign Bdy Lab Data Result diagrams: 07/18/19 05:45 07/18/19 05:45 Labs: Lab Results 07/18/19 07/18/19 07/18/19 Range/Units 05:45 05:45 05:45 WBC 8.9 (4.5-11.0) X10^3/uL RBC 4.27 (4.0-5.2) X10^6/uL Hgb 12.7 (12.0-16.0) g/dL Hct 38.3 (36-46) % MCV 89.6 (80-100) fL MCH 29.8 (26-34) PG MCHC 33.3 (30-36) % RDW 13.4 (11.6-14.8) % Plt Count 251 (150-400) X10^3/uL Neut % (Auto) 73.6 (50-75) % Lymph % (Auto) 10.4 L (25-40) % [place] % (Auto) 14.2 H (3-14) % Eos % (Auto) 1.2 L (2-4) % Baso % (Auto) 0.6 (0-2) % Neut # (Auto) 6500 (3696-1841) /uL Lymph # (Auto) 900 L (5167-9344) /uL [place] # (Auto) 1300 H (0-900) /uL Eos # (Auto) 100 (0-450) /uL Baso # (Auto) 100 (0-100) /uL ESR 19 (0-20) MM/HR Sodium 138 (137-145) mmol/L Potassium 4.0 (3.4-5.1) mmol/L Chloride 108 H (98-107) mmol/L Carbon Dioxide 22 (22-32) mmol/L BUN 13 (7-17) mg/dL Creatinine 0.80 (0.52-1.04) mg/dL Estimated GFR > 60.0 (>60) mL/min BUN/Creatinine Ratio 16.3 (6-22) Glucose 116 H (80-110) mg/dL Lactate 0.7 (0.7-2.1) mmol/L Calcium 9.3 (8.4-10.2) mg/dL C-Reactive Protein 4.8 H (<1.0) mg/dL Imaging Data RUE CT: Radiologist's Impression: Romana Babb 68 F 1950 [place] [address] CT Scan Report Signed Patient: HolleyRomana JMR#: [id number] : [id number]:[id number] Age/Sex: 68 / FDate of Service: 07/18/19 Loc: KB761-9 Accession Number: [id number] Procedure: CT UE RT w con Ordering Provider: Glenn Smith D.O. PROCEDURE: CT UE RT W CON INDICATIONS: worsening pain swelling hand/wrist, abscess vs. cellulitis TECHNIQUE: After the administration of intravenous contrast, 3 mm axial sections acquired of the right forearm and wrist extending into the hand area, with coronal and sagittal reformats. COMPARISON: [facility], CR, XR FINGER RT MIN 2V, 07/17/2019, 1:10. FINDINGS: Image quality: Excellent. Bones: No trauma or osteomyelitis found. Soft tissues: There is edema within the volar across the wrist are involving the flexor tendons, producing increased radiodensity within the flexor tendon sheaths and indistinct margination between individual sheath in the flexor compartment. No rim-e nhancing fluid collection suggestive of osteomyelitis is found. IMPRESSION: Flexor compartment inflammatory changes at the distal forearm and wrist, without abscess formation, foreign body, or adjacent osteomyelitis. Dictated by: Rhett Stockton M.D. on 07/18/2019 at 8:17 Approved by: Rhett Stockton M.D. on 07/18/2019 at 8:21 Discharge Plan Departure Patient Disposition: Admitted As Inpatient Clinical Impression: Cellulitis Qualifiers: Site of cellulitis: extremity Site of cellulitis of extremity: finger Late rality: right Qualified Code(s): L03.011 - Cellulitis of right finger Discharge Date/Time: 07/18/19 07:48 Admit Date/Time: 07/18/19 07:02 Admit Provider: Deborah Mcmillan
[2019-07-18] MEDS: SODIUM CHLORIDE 0.9% 1,000 ML 125 ML IV (05:29)
--- NOTE | 2019-07-18 05:45 | PC.NURSE ---
PT arrives for reevaluation of R thumb was seen here yesterday dx with cellulitis taking ibuprofen and doxycycline, states pain is increasing, redness, and swelling. Deines fever. Also seen at walk in clinic on and was diagnosed with cellulitis of her R thumb. Denies trauma, and states she had a crack in the skin of her thumb about a week ago. Erythema and swelling to R thumb present.
[2019-07-18 05:54] LABS: Add Manual Diff / Slide Review NO; Basophils Absolute Auto 100 /uL (0-100); Basophils Percent Auto 0.6 % (0-2); Eosinophils Absolute Auto 100 /uL (0-450); Eosinophils Percent Auto 1.2 % (2-4); Hematocrit 38.3 % (36-46); Hemoglobin 12.7 g/dL (12.0-16.0); Lymphocytes Absolute Auto 900 /uL (1100-4500); Lymphocytes Percent Auto 10.4 % (25-40); Mean Corpuscular HGB Conc 33.3 % (30-36); Mean Corpuscular Hemoglobin 29.8 PG (26-34); Mean Corpuscular Volume 89.6 fL (80-100); Monocytes Absolute Auto 1300 /uL (0-900); Monocytes Percent Auto 14.2 % (3-14); Neutrophils Absolute Auto 6500 /uL (1500-7000); Neutrophils Percent Auto 73.6 % (50-75); Platelet Count 251 X10^3/uL (150-400); Red Blood Cell Count 4.27 X10^6/uL (4.0-5.2); Red Cell Distribution Width 13.4 % (11.6-14.8); White Blood Cell Count 8.9 X10^3/uL (4.5-11.0)
[2019-07-18 06:03] LABS: Lactate (Lactic Acid) 0.7 mmol/L (0.7-2.1)
[2019-07-18 06:05] LABS: BUN Creatinine Ratio 16.3 (6-22); Blood Urea Nitrogen 13 mg/dL (7-17); C-Reactive Protein Quant 4.8 mg/dL (<1.0); Calcium 9.3 mg/dL (8.4-10.2); Carbon Dioxide 22 mmol/L (22-32); Chloride 108 mmol/L (98-107); Estimated Glomerular Filt Rate > 60.0 mL/min (>60); Glucose 116 mg/dL (80-110); HEMOLYSIS < 15 (0-50); Sodium 138 mmol/L (137-145)
[2019-07-18 06:15] LABS: Erythrocyte Sedimentation Rate 19 MM/HR (0-20)
[2019-07-18] MEDS: VANCOMYCIN 1,500 MG/300 ML FROZ.PIGGY 200 MG IV (07:02)
--- NOTE | 2019-07-18 07:58 | PC.NURSE ---
Day Shift-admit Report rec'd from ROSEMARIE Donald in ED at 0735. Pt arrived to room 216 via wheelchair at 0747. Indep transferred herself from wheelchair to bed. BP elevated with sitting on arrival, pt states she has white coat syndrome. Call light within reach and oriented to call light. dr. Mcmillan aware of pt's arrival
[2019-07-18] MEDS: LACTATED RINGERS 1,000 ML 100 ML IV (08:08)
--- NOTE | 2019-07-18 09:06 | PM.CN ---
History of Present Illness Consult details Date Patient Seen: 07/18/19 Time Patient Seen: 09:06 Chief complaint: cellulitis infection Reason for consult: Right thumb hand cellulitis Requesting provider: Glenn Smith Narrative: 68F nonsmoker R thumb and hand /volar wrist pain, redness, and swelling. She was seen in the walk in clinic on and was diagnosed with cellulitis of her R thumb. She is R handed. She had a crack in the skin of her thumb 2 weeks or so prior. States she has had similar in the past. She was put on Doxycycline and given return precautions. She was seen in the ED yesterday morning and had labs drawn and an Xray. Findings were reassuring and she had no signs of osteomyelitis or tenosynovitis. She was given return precautions. She returns to the ER stating that her thumb and wrist are more swollen and painful. She's had no fever, but admits to chills last night and the pain keeps her up. She was admitted to Medicine for cellulitis protocol on IV antibiotics. She has a history of osteoarthritis and has occasional basilar thumb pain at baseline. She states after she had that crack in her thumb she thinks the deep and a little bit when floss a and had some increased swelling around her IP joint of her thumb. She has some decreased range of motion of her thumb but is able to flex and extend Meds Home Medications and Allergies Home Medications Medication Instructions Recorded Confirmed Type dorzolamide 2 % eye drops OPHTHALMIC (EYE) BID ml 11/07/17 07/16/19 History ibuprofen 200 mg capsule 400 mg PO .HS cap 11/07/17 07/16/19 History metronidazole 1 % topical gel TOP #180 gram 07/31/18 07/16/19 History trazodone 50 mg tablet 50 mg PO BEDTIME PRN tab 12/06/18 07/16/19 History Climara 0.05 mg/24 hr transdermal See Rx Instructions .ROUTE 07/15/19 07/16/19 Rx patch .COMPLEX #12 each NS doxycycline hyclate 100 mg capsule 100 mg PO BID 7 Days #14 cap 07/16/19 07/16/19 Rx azelastine 1 spray NASAL BID PRN 07/18/19 07/18/19 History Allergies Allergy/AdvReac Type Severity Reaction Status Date / Time codeine [CODEINE] Allergy Mild NAUSEA Verified 07/18/19 08:51 Sulfa (Sulfonamide Allergy Mild RASH Verified 07/18/19 08:51 Antibiotics) [SULFA (SULFONAMIDE ANTIBIOTICS)] Review of Systems Review of Systems ROS: Yes All systems reviewed with the patient and are negative except as otherwise documented Exam Vital Signs (past 8 hours): - 07/18/19 05:16 07/18/19 07:36 Temperature 98.4 F Pulse Rate 92 H 78 Respiratory Rate 14 16 Blood Pressure 181/84 H Blood Pressure [Left Arm] 180/81 H Pulse Oximetry 94 98 Oxygen Delivery Method Room Air Narrative Exam Narrative: General: Alert oriented no acute distress afebrile. Sitting up in hospital bed conversive with ease. Respiratory unlabored breathing on room air. No increased respiratory effort. Lungs clear to auscultation CV exam regular rate and rhythm Musculoskeletal: Right upper extremity is evaluated there the visual appearance of moderate osteoarthritis of the right hand. There is slight swelling of the thumb and volar wrist the outlined area pursue mobile cellulitis however this is very very faint. There are skin wrinkles present throughout the hand and thenar eminence. Mild swelling at the volar wrist. Patient is able to demonstrate wrist flexion and extension and some flexion and extension no blistering no fluctuance. No sausage digit appearance. No fusiform swelling no specific tenderness along the flexor tendon sheath. Sensation intact to light touch. Brisk capillary refill less than 2 seconds. Well-perfused digits. No open or draining wounds. Patient to point to some dry skin on the end for thumb and states this is where crack was. No wound or focal redness apparent on today's exam Objective Imaging CT RUE: My impression: No Abscess visualized Radiologist's impression: Flexor compartment inflammatory changes the distal forearm and wrist without abscess formation, foreign body or adjacent osteomyelitis. Rhett Stockton MD Labs Result Diagrams: 07/18/19 05:45 07/18/19 05:45 Labs: Laboratory Results - last 24 hr 07/18/19 07/18/19 07/18/19 05:45 05:45 05:45 WBC 8.9 RBC 4.27 Hgb 12.7 Hct 38.3 MCV 89.6 MCH 29.8 MCHC 33.3 RDW 13.4 Plt Count 251 Neut % (Auto) 73.6 Lymph % (Auto) 10.4 L [place] % (Auto) 14.2 H Eos % (Auto) 1.2 L Baso % (Auto) 0.6 Neut # (Auto) 6500 Lymph # (Auto) 900 L [place] # (Auto) 1300 H Eos # (Auto) 100 Baso # (Auto) 100 ESR 19 Sodium 138 Potassium 4.0 Chloride 108 H Carbon Dioxide 22 BUN 13 Creatinine 0.80 Estimated GFR > 60.0 BUN/Creatinine Ratio 16.3 Glucose 116 H Lactate 0.7 Calcium 9.3 C-Reactive Protein 4.8 H Assessment & Plan Assessment & Plan narrative: Right hand cellulitis: Involving right thumb volar wrist. Mild swelling minimal erythema some decreased range of motion without sausage digit or fusiform appearance. Does not appear to be a pyogenic flexor tenosynovitis at this time. There is some swelling on CT scan without abscess formation. May be non infectious or early in infection presentation. ESR is normal 19, but CRP is elevated 4. Has only had 1 or 2 days of doxycycline. Recommend broad-spectrum IV antibiotics for least 24 hours and re-evaluate. May need drainage if worsening appearance. Recommend vanc and Zosyn. NPO at midnight and re-evaluate in the morning. if improving/ not worsening, recommend 5 days Iv depending on response. Discussed Current presentation does not appear consistent with acute pyogenic tenosynovitis however could be very early in appearance. Time Spent With Patient Time with patient: less than 15 minutes
--- NOTE | 2019-07-18 09:21 | P.HP_ITS ---
History of Present Illness History of Present Illness Date Patient Seen: 07/18/19 Time Patient Seen: 09:00 Chief complaint: cellulitis infection Narrative: Patient is 68-year-old right handed female in generally good health presented back to the ER due to worsening right thumb and wrist pain, swelling and redness. About 5 days ago she noticed onset of pain, redness and swelling in the thumb. She was seen at the walking clinic 2 days ago and prescribed doxycycline. She presented to the ER initially 1 day ago with worsening symptoms and advised to continue on the oral antibiotic. Finger x-rays showed mild soft tissue swelling over the thumb, no osteomyelitis, no foreign body, mild DJD. She presented back to ER this morning due to concern of increasing p ain and swelling. Over past 2 days she has noticed the redness and swelling extending to the distal forearm. She also has some pain in the other fingers of same hand. Upper extremity CT from today's ER visit showed flexor compartment inflammatory changes at the distal forearm and wrist, without abscess or osteomyelitis. She was given dose of vancomycin and Rocephin and being admitted for failure of outpatient antibiotic management. Ortho has been consulted. Patient History Medical History Cellulitis (Acute) Chicken pox (Resolved ~1959) Frequent UTI (Chronic ~1972) Glaucoma (Chronic ~2012) Hay fever (Chronic ~2003) Interstitial cystitis (Chronic ~1969) Measles (Resolved ~1959) Neck pain (Chronic ~2013) Osteoarthritis (Acute) Ovarian cyst (Chronic ~1979) Pain of right thumb (Acute) Pneumothorax (Chronic) Raynauds disease (Chronic ~2011) Recurrent sinusitis (Chronic ~1995) Skin cancer, basal cell (Chronic ~2009) Surgical History History of bilateral salpingo-oophorectomy (BSO) History of tonsillectomy Status post appendectomy Status post dilation and curettage Status post dilation and curettage Status post dilation and curettage Status post hysterectomy Status post tubal ligation Family & Social History Family History Brother Age: 72 Multiple myeloma Agent orange exposure Father Arthritis Dementia Mother Mental health problem Alcoholism Social History: household members spouse Prior Living Arrangements House Safety & Behavioral: Feels Safe in Current Yes Environment Been Physically Hurt or No Threatened By a Person Suicidal Ideation Description None Suicide Plan Description No Plan Tobacco & Substance use: Smoking Status Never smoker alcohol intake never alcohol intake frequency 0-2 drinks per day Substance Use Type does not use Meds Home Medications and Allergies Home Medications Medication Instructions Recorded Confirmed Type dorzolamide 2 % eye drops 1 drp OPHTHALMIC (EYE) BID ml 11/07/17 07/18/19 History ibuprofen 200 mg capsule 400 mg PO .HS cap 11/07/17 07/18/19 History metronidazole 1 % topical gel 1 applic TOP PRN PRN #180 gram 07/31/18 07/18/19 History trazodone 50 mg tablet 50 mg PO BEDTIME PRN tab 12/06/18 07/18/19 History Climara 0.05 mg/24 hr transdermal See Rx Instructions .ROUTE 07/15/19 07/18/19 Rx patch .COMPLEX #12 each NS doxycycline hyclate 100 mg capsule 100 mg PO BID 7 Days #14 cap 07/16/19 Rx azelastine 1 spray NASAL BID PRN 07/18/19 07/18/19 History Allergies Allergy/AdvReac Type Severity Reaction Status Date / Time codeine [CODEINE] Allergy Mild NAUSEA Verified 07/18/19 08:51 Sulfa (Sulfonamide Allergy Mild RASH Verified 07/18/19 08:51 Antibiotics) [SULFA (SULFONAMIDE ANTIBIOTICS)] Review of Systems Review of Systems Narrative: No fevers, chills, nausea, vomiting. ROS: Yes All systems reviewed with the patient and are negative except as otherwise documented Exam Vital Signs (past 8 hours): - 07/18/19 05:16 07/18/19 07:36 Temperature 98.4 F Pulse Rate 92 H 78 Respiratory Rate 14 16 Blood Pressure 181/84 H Blood Pressure [Left Arm] 180/81 H Pulse Oximetry 94 98 Oxygen Delivery Method Room Air Narrative Exam Narrative: GENERAL: Alert very pleasant female currently appearing in no acute distress HEAD: Atraumatic. Normocephalic. EYES: Pupils equal, round and reactive. Extraocular motions intact. No scleral icterus. OROPHARYNX: moist mucosa NECK: Trachea midline. No lymphadenopathy. CARDIOVASCULAR: Regular rate and rhythm without murmurs, gallops, or rubs. RESPIRATORY: Clear to auscultation bilaterally. GASTROINTESTINAL: Abdomen nondistended, soft, non-tender. No hepato- splenomegaly, or palpable masses. EXTREMITIES: No pre tibia edema. Musculoskeletal: RUE: There is mild diffuse swelling of the thumb extending to the then are eminence and volar aspect of wrist to distal forearm and then wrapping around to the dorsum of the distal forearm. There is just mild tenderness along the flexor tendon of the thumb. She is unable to completely ma ke a fist or touch thumb to pinky. There is mild resistance with passive thumb flexion. There is mild tenderness along flexor tendons of other fingers but no discernible swelling of fingers. There is some superficial cracking and dryness of the distal thumb. NEUROLOGICAL: Alert, well oriented, speech is intact, normal bilateral upper and lower extremity strength Objective Labs Result Diagrams: 07/18/19 05:45 07/18/19 05:45 Labs: Laboratory Results - last 24 hr 07/18/19 07/18/19 07/18/19 05:45 05:45 05:45 WBC 8.9 RBC 4.27 Hgb 12.7 Hct 38.3 MCV 89.6 MCH 29.8 MCHC 33.3 RDW 13.4 Plt Count 251 Neut % (Auto) 73.6 Lymph % (Auto) 10.4 L [place] % (Auto) 14.2 H Eos % (Auto) 1.2 L Baso % (Auto) 0.6 Neut # (Auto) 6500 Lymph # (Auto) 900 L [place] # (Auto) 1300 H Eos # (Auto) 100 Baso # (Auto) 100 ESR 19 Sodium 138 Potassium 4.0 Chloride 108 H Carbon Dioxide 22 BUN 13 Creatinine 0.80 Estimated GFR > 60.0 BUN/Creatinine Ratio 16.3 Glucose 116 H Lactate 0.7 Calcium 9.3 C-Reactive Protein 4.8 H Assessment & Plan Assessment & Plan narrative: 1. Right upper extremity cellulitis involving the thumb, hand, extending to distal forearm -patient with failure of outpatient antibiotic with doxycycline -normal WBC, ESR 19, CRP 4.8 versus CRP 1.0 on 07/16 -treat with IV vancomycin and Zosyn -patient evaluated by Dr. Dai and she recommends IV antibiotics and to reassess in 24 hours -NPO after midnight in case she needs surgery -Toradol IV as needed, Tylenol as needed 2. History of white coat hypertension -patient with elevated blood pressures in hospital, states her blood pressures at home are always well in the normal range -monitor BP Quality VTE Deep Vein Thrombosis/Pulmonary Embolism Present on Admission: No
[2019-07-18] MEDS: CEFTRIAXONE 2 GM/50 ML FROZ.PIGGY IV (10:38)
[2019-07-18] MEDS: ACETAMINOPHEN 325 MG TABLET 650 MG PO ×2 (10:41→16:58)
--- NOTE | 2019-07-18 11:10 | PC.NURSE ---
Assess- Patient is admitted for r. thumb cellulitis. She states that she was flossing her teeth and thinks that the floss itself may have cut her thumb. She doeve a cracked area to thumb. She came up from the ER with black marker outlining boarders of redness. Thumb is swollen and red. She also has a dry brown patch on her l.mid back that she sometimes uses cream for and a l.big toe that is slightly red and soar, possible ingrown toenail. Patient is here for iv antibiotic treatment, she is independent in her room, and has been up to use the bathroom a and she is steady on her feet. SCDS just applied to patients lower extremities. IV antibiotic infusing and patient is comfortable.
[2019-07-18] MEDS: KETOROLAC 15 MG/ML VIAL IV ×2 (12:11→17:48)
--- NOTE | 2019-07-18 12:31 | CM.DANOTE ---
Addendum entered by Sandra Gibson LPN 07/18/19 12:49: [facility] is faxing needed documentation including face sheet to [facility] now. Original Note: Discharge Planning/Care Management DCP: assessment: case received, EMR reviewed and met with pt. Introduced self and role. Pt's usual level of function is discussed: see Assessment Template below this note. Pt is a 68 year old female who admitted to care of hospitalist team early this mornin. Dr. Dai is consulting. Payer: Medicare and [employer]. Admission status: INPT: confirmed by [facility] RN Raciel. PCP: Dr. Santino Kumar Pt is currently getting IV antibiotics for a cellulitis of her hand that has worsened after treatment in the outpt setting. She will be NPO after midnight in prep for possible surgical procedure with Dr. Dai tomorrow. Dr. Dai also states there will likely be a need for several days of IV antibiotics but this is unclear at this time. Discussed giving a referral to [facility] in case of need for the IV treatment in the home setting and she agreed. Let her know that Medicare does not cover this but it is likely that her for Life insurance will pay all to part of this (per pharmacist at [facility]). Gave referral over phone then with [facility] pharmacist who is aware that this is only a possible plan but who agrees to have their billing dept check out the specifics of the for Life coverage. P: will be following this weekend as POC unfolds and the needs at d/c are clearer. CM Discharge Assessment Start: 07/18/19 12:29 Freq: Status: Active Protocol: Document 07/18/19 12:30 ITV (Rec: 07/18/19 12:30 ITV [id number]) Discharge Planning Assessment Advance Directives? No Advance Directives on File No History Provided By Patient,Medical Record Has Patient been admitted in last 30 No days? Comment ER only Prior Living Arrangements House Household Members spouse Independent with ADL's Yes Is patient alert and oriented? Yes Whiteboard Updated in Patient Room with Yes name and ext. # of [employer] Crane Review Status In Process
[2019-07-18] MEDS: PIPERACILLIN-TAZO 3.375 GM/50 ML FROZ.PIGGY IV ×3 (13:36→23:34)
--- NOTE | 2019-07-18 15:33 | PC.NURSE ---
Addendum entered by Elma Mooney R.N. 07/18/19 23:23: Pt reports nausea improved. BL calf scd's in place for sleep. No further complaints verbalized. Addendum entered by Elma Mooney R.N. 07/18/19 20:59: C/o nausea. ALTAGRACIA Giordano was informed of this complaint. Ice chips provided and luly wanda. Zofran administration orders adjusted per FAMILY LAWYER. Cool cloth to forehead. Addendum entered by Elma Mooney R.N. 07/18/19 19:13: Does report improvement in pain right wrist and increased mobility of fingers right hand following administration of tylenol, toradol and oxycodone. Elevation on pillows x 3 to right hand/wrist encouraged and reinforced. Zofran administered as pt reports concerns re nausea with pain meds. Has ice available to apply to RUE prn. Addendum entered by Elma Mooney R.N. 07/18/19 17:33: Dr. Mcmillan informed pt reports no improvement in pain to right hand,wrist,fingers. Pt does report feels as though edema and pain worsening to right wrist, fingers and right hand. Outlined erythema does not exceed outlines. Dr. Mcmillan was informed. This appeals writer appreciates no change in appearance or neurovascular status to this extremity from the beginning of shift. Original Note: Pt awake and alert in bed. RUE elevated. Pt reports increasing pain to right hand/fingers. 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 Reports tingling to fingers of right hand. Strong radial pulse. Ice to right wrist/hand. Note to Dr. Mcmillan regarding pt's increasing pain unrelieved by tylenol and toradol. Erythema to right wrist does not exceed outlines.
[2019-07-18] MEDS: HYDROCODONE/ACET 5/325 TABLET 1 TAB PO (16:01)
[2019-07-18] MEDS: OXYCODONE IR 5 MG TABLET PO (17:48)
[2019-07-18] MEDS: ONDANSETRON 4 MG/2 ML INJ IV ×2 (18:26→23:35)
[2019-07-18] MEDS: SODIUM CHLORIDE 0.9% FLUSH 10 ML IV (18:26)
[2019-07-19] MEDS: KETOROLAC 15 MG/ML VIAL IV ×2 (00:47→07:19)
[2019-07-19 03:20] VITALS: BP 159/79; PULSE 77; RESP 16; TEMP 36.7; O2SAT 98
[2019-07-19] MEDS: ACETAMINOPHEN 325 MG TABLET 650 MG PO ×2 (03:37→11:30)
[2019-07-19 05:46] LABS: Add Manual Diff / Slide Review NO; Basophils Absolute Auto 0 /uL (0-100); Basophils Percent Auto 0.4 % (0-2); Eosinophils Absolute Auto 200 /uL (0-450); Eosinophils Percent Auto 2.4 % (2-4); Hematocrit 34.2 % (36-46); Hemoglobin 11.5 g/dL (12.0-16.0); Lymphocytes Absolute Auto 1100 /uL (1100-4500); Lymphocytes Percent Auto 16.2 % (25-40); Mean Corpuscular HGB Conc 33.7 % (30-36); Mean Corpuscular Hemoglobin 30.4 PG (26-34); Mean Corpuscular Volume 90.3 fL (80-100); Monocytes Absolute Auto 1000 /uL (0-900); Monocytes Percent Auto 15.1 % (3-14); Neutrophils Absolute Auto 4600 /uL (1500-7000); Neutrophils Percent Auto 65.9 % (50-75); Platelet Count 232 X10^3/uL (150-400); Red Blood Cell Count 3.79 X10^6/uL (4.0-5.2); Red Cell Distribution Width 13.4 % (11.6-14.8)
[2019-07-19 05:58] LABS: BUN Creatinine Ratio 13.6 (6-22); Blood Urea Nitrogen 11 mg/dL (7-17); Calcium 8.7 mg/dL (8.4-10.2); Carbon Dioxide 25 mmol/L (22-32); Chloride 108 mmol/L (98-107); Estimated Glomerular Filt Rate > 60.0 mL/min (>60); Glucose 94 mg/dL (80-110); HEMOLYSIS < 15 (0-50); Potassium 3.7 mmol/L (3.4-5.1); Sodium 138 mmol/L (137-145)
[2019-07-19] MEDS: PIPERACILLIN-TAZO 3.375 GM/50 ML FROZ.PIGGY IV ×2 (06:26→11:57)
[2019-07-19] MEDS: VANCOMYCIN 1,000 MG/200 ML PIGGYBACK 200 MG IV (08:05)
[2019-07-19] MEDS: DORZOLAMIDE 2% OPHTH 10 ML 1 DROPS EYE-BOTH (08:06)
[2019-07-19 08:07] VITALS: BP 147/74; PULSE 72; RESP 18; TEMP 36.5; O2SAT 98
--- NOTE | 2019-07-19 10:01 | PM.PN.1 ---
Subjective Subjective Date Patient Seen: 07/19/19 Time Patient Seen: 10:01 Interval history: The patient reports that she is seeing improvement in her hand. She continues to have some discomfort around the interphalangeal joints, at the site of her known prior osteoarthritis. Exam Vital Signs (past 8 hours): - 07/19/19 03:20 07/19/19 08:07 Temperature 98.1 F 97.7 F Pulse Rate 77 72 Respiratory Rate 16 18 Blood Pressure 159/79 H 147/74 H Pulse Oximetry 98 98 Oxygen Delivery Method Room Air Oxygen Flow Rate 0 Narrative Exam Narrative: There is minimal redness within the delineated area on her skin from the Sharpie marker. She is tender over the interphalangeal joints, but not along the path of the flexor tendons. She can make a reasonable fist lacking about 1 cm of composite flexion. There is no pain on active or passive extension of the digits. Objective Labs Result Diagrams: 07/19/19 05:17 07/19/19 05:17 Labs: Laboratory Results - last 24 hr 07/19/19 07/19/19 05:17 05:17 WBC 7.0 RBC 3.79 L Hgb 11.5 L Hct 34.2 L MCV 90.3 MCH 30.4 MCHC 33.7 RDW 13.4 Plt Count 232 Neut % (Auto) 65.9 Lymph % (Auto) 16.2 L [place] % (Auto) 15.1 H Eos % (Auto) 2.4 Baso % (Auto) 0.4 Neut # (Auto) 4600 Lymph # (Auto) 1100 [place] # (Auto) 1000 H Eos # (Auto) 200 Baso # (Auto) 0 Sodium 138 Potassium 3.7 Chloride 108 H Carbon Dioxide 25 BUN 11 Creatinine 0.81 Estimated GFR > 60.0 BUN/Creatinine Ratio 13.6 Glucose 94 Calcium 8.7 Assessment & Plan Assessment & Plan narrative: The patient appears to have an upper extremity cellulitis which is improving on IV antibiotics. I see no indications currently of deep abscess or manjeet tendinous infection. Once her skin has improved to the point where she can be discharged on oral antibiotics she may be discharged by the medicine service. As there are no current indications for surgical intervention, I will sign off at this time. Time Spent With Patient Time with patient: less than 15 minutes Quality VTE Deep Vein Thrombosis/Pulmonary Embolism Present on Admission: No
--- NOTE | 2019-07-19 10:51 | PC.NURSE ---
Patient is A&Ox3, he denies pain. Up to bathroom with walker and sba. Given a bed bath this am, patient thankful... He is on TPN at 42 and hour. R.upper Picc Line patent, patient ate some at breakfast and is comfortable and denies nausea. Napping now.
--- NOTE | 2019-07-19 11:35 | PM.DS.1 ---
History of Present Illness History of Present Illness Chief complaint: cellulitis infection Narrative: Patient is 68-year-old right handed female in generally good health presented back to the ER due to worsening right thumb and wrist pain, swelling and redness. About 5 days ago she noticed onset of pain, redness and swelling in the thumb. She was seen at the walking clinic 2 days ago and prescribed doxycycline. She presented to the ER initially 1 day ago with worsening symptoms and advised to continue on the oral antibiotic. Finger x-rays showed mild soft tissue swelling over the thumb, no osteomyelitis, no foreign body, mild DJD. She presented back to ER this morning due to concern of increasing pain and swelling. Over past 2 days she has noticed the redness and swelling extending to the distal forearm. She also has some pain in the other fingers of same hand. Upper extremity CT from today's ER visit showed flexor compartment inflammatory changes at the distal forearm and wrist, without abscess or osteomyelitis. She was given dose of vancomycin and Rocephin and being admitted for failure of outpatient antibiotic management. Ortho has been consulted. Discharge Providers Provider Date of admission: 07/18/19 07:02 Discharge Date: 07/19/19 Primary care physician: Santino Kumar MD Consults: 07/18/19 07:10 Consult to Physician Routine Comment: Consulting Provider: Vicki Allen Reason for consultation: cellulitis of right thumb Has provider been notified: Yes Discharge provider: Hakeem José MD Summary Hospital Course Discharge Diagnosis: 1. Right upper extremity cellulitis, involving the thumb, hand and distal forearm 2. White coat hypertension Hospital Course: Patient was admitted due to failure of outpatient oral antibiotic. She was treated with IV vancomycin and Zosyn with considerable improvement in erythema, swelling and pain. Ortho consulted and did not think there is any tendon involvement. She is being discharged on oral antibiotic, will resume doxycycline and take cephalexin concurrently for 1 week oral antibiotic course. Status at Discharge Cognitive/behavioral status at discharge: oriented Functional status at discharge: independent ambulation Overall status at discharge: patient is back to baseline Time Spent with Patient Time spent: Less than 30 minutes Exam Vital Signs (past 8 hours): - 07/19/19 08:07 Temperature 97.7 F Pulse Rate 72 Respiratory Rate 18 Blood Pressure 147/74 H Pulse Oximetry 98 Oxygen Delivery Method Room Air Oxygen Flow Rate 0 Objective Labs Result Diagrams: 07/19/19 05:17 07/19/19 05:17 Labs: Laboratory Results - last 24 hr 07/19/19 07/19/19 05:17 05:17 WBC 7.0 RBC 3.79 L Hgb 11.5 L Hct 34.2 L MCV 90.3 MCH 30.4 MCHC 33.7 RDW 13.4 Plt Count 232 Neut % (Auto) 65.9 Lymph % (Auto) 16.2 L [place] % (Auto) 15.1 H Eos % (Auto) 2.4 Baso % (Auto) 0.4 Neut # (Auto) 4600 Lymph # (Auto) 1100 [place] # (Auto) 1000 H Eos # (Auto) 200 Baso # (Auto) 0 Sodium 138 Potassium 3.7 Chloride 108 H Carbon Dioxide 25 BUN 11 Creatinine 0.81 Estimated GFR > 60.0 BUN/Creatinine Ratio 13.6 Glucose 94 Calcium 8.7 Discharge Plan Discharge Plan Patient Disposition: Home Discharge comment: You were admitted due to upper extremity cellulitis. Continue doxycycline from previous Rx. I have also prescribed cephalexin to take concurrently with the doxycyline. Take ibuprofen 400-600 mg and acetaminophen 500-1000mg every 6 hours as needed for pain relief. Discharge orders & Medications Prescriptions: New cephalexin 500 mg capsule 500 mg PO QID 7 Days Qty: 28 RF: 0 Continued doxycycline hyclate 100 mg capsule 100 mg PO BID 7 Days Qty: 14 RF: 0 estradiol [Climara] 0.05 mg/24 hr patch weekly See Rx Instructions .ROUTE .COMPLEX Qty: 12 RF: 3 metronidazole 1 % gel 1 applic TOP PRN PRN (Reason: for itching, dry skin patch) Qty: 180 RF: 0 trazodone 50 mg tablet 50 mg PO BEDTIME PRN (Reason: Sleep) RF: 0 dorzolamide 2 % drops 1 drp ophthalmic (eye) BID RF: 0 ibuprofen 200 mg capsule 400 mg PO .HS RF: 0 azelastine 137 mcg (0.1 %) aerosol,spray 1 spray NASAL BID PRN (Reason: itching skin patch) RF: 0 Follow up/Referrals: Santino Kumar MD [Primary Care Provider] - Diet/Activity/Treatments Diet: Diet as Tolerated Skin/Wound/Dressing Care Report to your healthcare provider any signs of infection, such as:: chills, fever, increased pain and unusual redness Discharge Data Primary Care Provider: Santino Kumar VTE Deep Vein Thrombosis/Pulmonary Embolism Present on Admission: No
--- NOTE | 2019-07-19 11:52 | PC.NURSE ---
Patient is doing well. R.thumb looks less red and swollen this morning. She is up adlib, and has been given toradol and tylenol for pain. is going to discharge patient today.
[2019-07-19] MEDS: SODIUM CHLORIDE 0.9% FLUSH 10 ML IV (11:57)
[2019-07-19 12:00] VITALS: BP 161/76; PULSE 74; RESP 18; TEMP 36.8; O2SAT 96
--- NOTE | 2019-07-19 12:13 | CM.DPC ---
DCP: continued: case discussed today with Dr. José who has conferred with Dr. Davis. Pt will not need surgery, is improving and will d/c home today on oral antibiotics.
== END 2019-07-19 13:18 | disposition home or self-care (01) | DRG 603 ==
LOC: ED 06:21 → AC 07:04
PROVIDERS: Nurse Practitioner Family; Admitting Provider Internal Medicine; Emergency Provider Emergency Medicine; PCP Family Medicine; Referring Provider Emergency Medicine; Visit Provider Internal Medicine
DX: L03.011 Cellulitis of right finger (principal); L03.113 Cellulitis of right upper limb; R03.0 Elevated blood-pressure reading, without diagnosis of hypertension
CPT/HCPCS: 36415; 73140; 73201; 80048; 83605; 84550; 85025; 85651; 86140; 87040; 96361; 96365; 99284; J0696; J1885; J2405; J2543; Q9967

== ENCOUNTER → 2019-12-01 16:18 | Outpatient (CLI) | payer MEDICARE, OTHER, SELFPAY ==
[2019-07-18 08:14] VITALS: BMI 24.7
--- NOTE | 2019-12-01 | DI.MG.S_ITS ---
BILATERAL DIGITAL SCREENING MAMMOGRAM 3D/2D WITH CAD: 12/01/2019 CLINICAL: Routine screening. Comparison is made to exams dated: 10/24/2018 mammogram, 09/12/2016 mammogram, and 10/22/2017 mammogram - [facility]. There are scattered fibroglandular elements in both breasts. Current study was also evaluated with a Computer Aided Detection (CAD) system. There is a developing 0.6 cm irregular equal density asymmetry in the left breast middle depth lateral region seen on the craniocaudal view only. This is more prominent and increased in size. There is possible architectural distortion associated with the asymmetry. No other significant masses, calcifications, or other findings are seen in either breast. IMPRESSION: INCOMPLETE: NEEDS ADDITIONAL IMAGING EVALUATION The developing 0.6 cm irregular equal density asymmetry in the left breast is indeterminate. Additional views with possible ultrasound are recommended. This exam was interpreted at Station ID: [id number]. NOTE: For mammograms, a report in lay terms will be sent to the patient. Approximately 15% of breast malignancies will not be visualized mammographically. In the management of a palpable breast mass, a negative mammogram must not discourage biopsy of a clinically suspicious lesion. Electronically Signed By: Jules Gutierrez M.D. aty/:12/01/2019 17:18:40 copy to: Patricia Kumar letter sent: Additional Imaging Needed ACR BI-RADS Category 0: Incomplete [id number]
== END ==
PROVIDERS: PCP Family Medicine; Referring Provider Family Medicine; Visit Provider Family Medicine
DX: Z12.31 Encounter for screening mammogram for malignant neoplasm of breast (principal)
CPT/HCPCS: 77063; 77067

== ENCOUNTER → 2019-12-05 12:35 | Outpatient (CLI) | payer MEDICARE, OTHER, SELFPAY ==
[2019-07-18 08:14] VITALS: BMI 24.7
--- NOTE | 2019-12-05 12:37 | DI.MG.S_ITS ---
UNILATERAL LEFT DIGITAL DIAGNOSTIC MAMMOGRAM 3D/2D WITH ADDITIONAL VIEWS: 12/05/2019 CLINICAL: Additional evaluation requested from prior study. Comparison is made to exams dated: 12/01/2019 mammogram, 10/24/2018 mammogram, and 10/22/2017 mammogram - [facility]. There are scattered fibroglandular elements in left breast. There is a 9 mm irregular equal density focal asymmetry with a spiculated margin and fine calcifications in the left breast at 3- 4 o'clock middle depth. This is seen in additional views. No other significant masses or calcifications are seen in the breast. IMPRESSION: INCOMPLETE: NEEDS ADDITIONAL IMAGING EVALUATION The 9 mm irregular equal density focal asymmetry in the left breast is indeterminate. An ultrasound is recommended. This was performed immediately following this exam. This exam was interpreted at Station ID: [id number]. NOTE: For mammograms, a report in lay terms will be sent to the patient. Approximately 15% of breast malignancies will not be visualized mammographically. In the management of a palpable breast mass, a negative mammogram must not discourage biopsy of a clinically suspicious lesion. Electronically Signed By: Glo escobar/:12/05/2019 13:32:09 copy to: Patricia DEVRIES BI-RADS Category 0: Incomplete [id number]
--- NOTE | 2019-12-05 12:37 | DI.US.S_ITS ---
LIMITED ULTRASOUND OF LEFT BREAST: 12/05/2019 CLINICAL: Left breast abnormal mammo. Comparison is made to exams dated: 12/05/2019 mammogram, 12/01/2019 mammogram, 10/24/2018 mammogram, 10/22/2017 mammogram, 09/12/2016 mammogram, and 09/21/2015 mammogram - [facility]. Real-time ultrasound of the left breast 3-5 o'clock region was performed. Woodruff scale images of the real-time examination were reviewed. No significant abnormalities were seen sonographically in the left breast. Specifically, no finding to correspond to the patient's mammographic abnormality. IMPRESSION: PROBABLY BENIGN There is no abnormality seen in the left breast to correspond with the architectural distortion and mammographic asymmetry at 3 o'clock. A follow-up mammogram and an ultrasound in 6 months is recommended to demonstrate stability of this area. Findings and recommendations were conveyed to the patient at time of exam. This exam was interpreted at Station ID: [id number]. Electronically Signed By: Glo escobar/:12/05/2019 16:27:00 copy to: Patricia Kumar letter sent: Followup Recommended Ultrasound BI-RADS: 3 Probably benign
== END ==
PROVIDERS: PCP Family Medicine; Referring Provider Family Medicine; Visit Provider Family Medicine
DX: R92.8 Other abnormal and inconclusive findings on diagnostic imaging of breast (principal); N64.89 Other specified disorders of breast
CPT/HCPCS: 76642; 77065; G0279

== ENCOUNTER → 2020-05-06 17:50 | Outpatient (CLI) | payer MEDICARE, OTHER, SELFPAY ==
[2019-07-18 08:14] VITALS: BMI 24.7
[2020-05-06 18:17] LABS: Appearance Urine UA CLEAR; Bilirubin Urine UA NEGATIVE (NEGATIVE); Color Urine UA YELLOW; Glucose Urine UA NEGATIVE (Negative); Ketones Urine UA NEGATIVE (NEGATIVE); Leukocyte Esterase Urine UA NEGATIVE (NEGATIVE); Nitrite Urine UA NEGATIVE (Negative); Occult Blood Urine UA 2+ (Negative); Protein Urine UA NEGATIVE (Negative); Urobilinogen Urine UA 0.2 E.U./dL (0.2)
[2020-05-06 18:19] LABS: pH Urine UA 5.5 (4.5-8.0)
[2020-05-06 18:22] LABS: Bacteria Urine Moderate (10-30); Culture Indicated Urine Cult Not Indicated; RBC Urine 0-1/HPF (0-5/HPF); Squamous Epithelial Cell Urine 10-30 /HPF (0-5/HPF); WBC Urine 0-1/HPF (0-5/HPF)
== END ==
PROVIDERS: PCP Family Medicine; Referring Provider Specialist; Visit Provider Specialist
DX: Z13.9 Encounter for screening, unspecified (principal)
CPT/HCPCS: 81001

== ENCOUNTER → 2020-06-15 12:57 | Outpatient (CLI) | payer MEDICARE, OTHER, SELFPAY ==
[2019-07-18 08:14] VITALS: BMI 24.7
[2020-06-15 13:24] LABS: Bacteria Urine None Seen; WBC Urine None Seen (0-5/HPF)
[2020-06-15 13:59] LABS: Appearance Urine UA CLEAR; Bilirubin Urine UA NEGATIVE (NEGATIVE); Color Urine UA YELLOW; Glucose Urine UA NEGATIVE (Negative); Ketones Urine UA NEGATIVE (NEGATIVE); Leukocyte Esterase Urine UA NEGATIVE (NEGATIVE); Nitrite Urine UA NEGATIVE (Negative); Occult Blood Urine UA TRACE-INTACT (Negative); Protein Urine UA NEGATIVE (Negative); Urobilinogen Urine UA 0.2 E.U./dL (0.2)
[2020-06-15 14:03] LABS: pH Urine UA 6.5 (4.5-8.0)
[2020-06-15 14:10] LABS: Amorphous Sediment Urine 1+; Culture Indicated Urine Cult Not Indicated; RBC Urine 0-1/HPF (0-5/HPF)
== END ==
PROVIDERS: PCP Family Medicine; Referring Provider Specialist; Visit Provider Specialist
DX: R30.0 Dysuria (principal)
CPT/HCPCS: 81001

== ENCOUNTER → 2020-07-26 13:30 | Outpatient (CLI) | payer MEDICARE, OTHER, SELFPAY ==
[2019-07-18 08:14] VITALS: BMI 24.7
--- NOTE | 2020-07-26 13:31 | DI.US.S_ITS ---
ULTRASOUND OF LEFT BREAST: 07/26/2020 CLINICAL: 6 month follow-up of abn mammo. Comparison is made to exams dated: 07/26/2020 mammogram, 12/05/2019 ultrasound, 12/05/2019 mammogram, 12/01/2019 mammogram, 10/24/2018 mammogram, and 10/22/2017 mammogram - [facility]. Real-time ultrasound of the left breast was performed. Woodruff scale images of the real-time examination were reviewed. No significant abnormalities were seen sonographically in the left breast. Specifically, no finding to correspond to the patient's resolved screening mammographic abnormality. IMPRESSION: NEGATIVE There is no sonographic evidence of malignancy. Return to annual mammogram screening schedule is recommended. Findings and recommendations were conveyed to the patient at time of exam. This exam was interpreted at Station ID: [id number]. Electronically Signed By: Glo escobar/:07/26/2020 14:27:46 copy to: ALONZO WYATT letter sent: Normal Exam Ultrasound BI-RADS: 1 Negative
--- NOTE | 2020-07-26 13:31 | DI.MG.S_ITS ---
UNILATERAL LEFT DIGITAL DIAGNOSTIC MAMMOGRAM 3D/2D: 07/26/2020 CLINICAL: Short term follow up for the left breast. Comparison is made to exams dated: 12/05/2019 mammogram, 12/01/2019 mammogram, and 10/24/2018 mammogram - [facility]. There are scattered fibroglandular elements in left breast. The 9 mm irregular equal density focal asymmetry in the left breast at 3 o'clock posterior depth is less prominent. This is not seen in additional views. No other significant masses or calcifications are seen in the breast. IMPRESSION: INCOMPLETE: NEEDS ADDITIONAL IMAGING EVALUATION Resolution of irregular equal density focal asymmetry in the left breast. Ultrasound evaluation to confirm resolution is recommended and was performed immediately following this exam. This exam was interpreted at Station ID: [id number]. NOTE: For mammograms, a report in lay terms will be sent to the patient. Approximately 15% of breast malignancies will not be visualized mammographically. In the management of a palpable breast mass, a negative mammogram must not discourage biopsy of a clinically suspicious lesion. Electronically Signed By: Glo escobar/:07/26/2020 14:08:26 copy to: ALONZO WYATT [facility] BI-RADS Category 0: Incomplete 3340F
== END ==
PROVIDERS: PCP Family Medicine; Referring Provider Specialist; Visit Provider Specialist
DX: R92.8 Other abnormal and inconclusive findings on diagnostic imaging of breast (principal); N64.89 Other specified disorders of breast
CPT/HCPCS: 76642; 77065; G0279

== ENCOUNTER → 2020-08-02 09:54 | Outpatient (CLI) | payer MEDICARE, OTHER, SELFPAY ==
[2019-07-18 08:14] VITALS: BMI 24.7
[2020-08-02 10:37] LABS: Add Manual Diff / Slide Review NO; Basophils Absolute Auto 100 /uL (0-100); Basophils Percent Auto 1.1 % (0-2); Eosinophils Absolute Auto 200 /uL (0-450); Eosinophils Percent Auto 4.3 % (2-4); Hematocrit 38.4 % (36-46); Hemoglobin 12.9 g/dL (12.0-16.0); Lymphocytes Absolute Auto 1000 /uL (1100-4500); Mean Corpuscular HGB Conc 33.5 % (30-36); Mean Corpuscular Hemoglobin 29.9 PG (26-34); Monocytes Absolute Auto 600 /uL (0-900); Monocytes Percent Auto 10.6 % (3-14); Neutrophils Absolute Auto 3400 /uL (1500-7000); Platelet Count 285 X10^3/uL (150-400); Red Blood Cell Count 4.31 X10^6/uL (4.0-5.2); Red Cell Distribution Width 13.4 % (11.6-14.8); White Blood Cell Count 5.2 X10^3/uL (4.5-11.0)
[2020-08-02 10:58] LABS: Alanine Aminotransferase 21 IU/L (<35); Albumin 4.2 g/dL (3.5-5.0); Albumin Globulin Ratio 1.8 (1.0-2.8); Alkaline Phosphatase 82 U/L (38-126); Aspartate Aminotransferase 28 IU/L (14-36); BUN Creatinine Ratio 23.5 (6-22); Bilirubin Total 0.3 mg/dL (0.2-1.3); Bilirubin Unconjugated 0.4 mg/dL (0.0-1.1); Blood Urea Nitrogen 19 mg/dL (7-17); Calcium 9.7 mg/dL (8.4-10.2); Carbon Dioxide 29 mmol/L (22-32); Chloride 104 mmol/L (98-107); Cholesterol 185 mg/dL (140-199); Estimated Glomerular Filt Rate > 60.0 mL/min (>60); Globulin 2.3 g/dL (1.7-4.1); Glucose 90 mg/dL (80-110); HDL Cholesterol 47 mg/dL (40-60); HEMOLYSIS < 15 (0-50); LDL Cholesterol Calculated 116 mg/dL (<100); Potassium 4.9 mmol/L (3.4-5.1); Sodium 138 mmol/L (137-145); Total Protein 6.5 g/dL (6.3-8.2); Triglycerides 110 mg/dL (35-150)
[2020-08-02 11:17] LABS: Free T3, Triiodothyronine Free 2.83 pg/mL (2.77-5.27); Free T4, Direct Thyroxine 1.05 ng/dL (0.78-2.19)
[2020-08-02 11:30] LABS: Thyroid Stimulating Hormone 2.44 uIU/mL (0.47-4.68)
== END ==
PROVIDERS: PCP Family Medicine; Referring Provider Family Medicine; Visit Provider Family Medicine
DX: I10 Essential (primary) hypertension (principal); Z13.29 Encounter for screening for other suspected endocrine disorder
CPT/HCPCS: 36415; 80053; 80061; 80076; 84439; 84443; 84481; 85025

== ENCOUNTER → 2020-08-16 09:41 | Outpatient (CLI) | payer MEDICARE, OTHER, SELFPAY ==
[2019-07-18 08:14] VITALS: BMI 24.7
[2020-08-16 13:09] LABS: COVID19 -Nasal RAPID Negative (Negative)
== END ==
PROVIDERS: PCP Family Medicine; Visit Provider Surgery
DX: Z01.812 Encounter for preprocedural laboratory examination (principal); Z20.822 Contact with and (suspected) exposure to COVID-19
CPT/HCPCS: 87635; C9803

== ENCOUNTER 2020-08-17 13:24 | Day surgery (SDC) | payer MEDICARE, OTHER, SELFPAY ==
[2019-07-18 08:14] VITALS: BMI 24.7
[2020-08-17 14:26] VITALS: BP 176/84; PULSE 108; RESP 20; TEMP 36.9; O2SAT 99; BMI 24.0
[2020-08-17] MEDS: SODIUM CHLORIDE 0.9% 1,000 ML 200 ML IV (14:30)
--- NOTE | 2020-08-17 14:33 | PM.HP.1 ---
History of Present Illness History of Present Illness Date Patient Seen: 08/17/20 Time Patient Seen: 14:40 Chief complaint: SCREENING COLONOSCOPY Narrative: This is a 69-year-old woman who has never had a colonoscopy. She denies any symptoms of melena, hematochezia, or weight loss. She does have some right-sided abdominal pain which is not been explained. ROS: Thirteen system review is otherwise negative other than as mentioned below and in HPI. PE: GENERAL: Well groomed and cooperative. Appears stated age. Answers questions promptly and appropriately. Vital signs noted. HENT: Normocephalic, atraumatic. Hearing intact. EYES: Conjunctiva pink, sclera white, no periorbital swelling. CARDIOVASCULAR: Regular rate. No pedal edema. RESPIRATORY: Non-tachypneic, breathing comfortably on room air. GASTROINTESTINAL: Abdomen soft and non-distended GENITALURINARY: No flank tenderness. MUSCULOSKELETAL: Equal tone and mass bilaterally. SKIN: Warm, dry, soft, appropriate color for ethnicity. No other lesions, rashes, or wounds. NEURO: Alert and Oriented X 3. No gross sensory deficits, or cognitive issues. PSYCH: Appropriate affect and mood. Patient History Medical History Acne rosacea, erythematous telangiectatic type Arthritis Cellulitis Chicken pox (~1959) Frequent UTI (~1972) Glaucoma (~2012) Hay fever (~2003) Interstitial cystitis (~1969) Measles (~1959) Neck pain (~2013) Osteoarthritis Ovarian cyst (~1979) Pain of right thumb Pneumothorax Raynauds disease (~2011) Recurrent sinusitis (~1995) Skin cancer, basal cell (~2009) Surgical History History of bilateral salpingo-oophorectomy (BSO) History of tonsillectomy Status post appendectomy Status post dilation and curettage Status post dilation and curettage Status post dilation and curettage Status post hysterectomy Status post tubal ligation Family & Social History Family History Brother Age: 73 Multiple myeloma Agent orange exposure Father Arthritis Dementia Mother Alcoholism Social History: household members spouse Tobacco & Substance use: Smoking Status Never smoker alcohol intake never alcohol intake frequency 0-2 drinks per day Substance Use Type does not use Meds Home Medications and Allergies Home Medications Medication Instructions Recorded Confirmed Type dorzolamide 2 % eye drops 1 drp OPHTHALMIC (EYE) BID ml 11/07/17 08/17/20 History ibuprofen 200 mg capsule 400 mg PO .HS cap 11/07/17 08/17/20 History Climara 0.05 mg/24 hr transdermal See Rx Instructions .ROUTE 05/17/20 08/17/20 Rx patch .COMPLEX #12 ea NS Allergies Allergy/AdvReac Type Severity Reaction Status Date / Time Sulfa (Sulfonamide Allergy Mild RASH Verified 08/17/20 14:24 Antibiotics) [SULFA (SULFONAMIDE ANTIBIOTICS)] codeine [CODEINE] AdvReac Mild NAUSEA Verified 08/17/20 14:24 Exam Vital Signs (past 8 hours): - 08/17/20 14:26 Temperature 98.5 F Pulse Rate 108 H Respiratory Rate 20 Blood Pressure 176/84 H Pulse Oximetry 99 Oxygen Delivery Method Room Air Assessment & Plan Assessment and plan (1) At average risk for colon cancer: Status: Acute (2) Abdominal pain: Status: Acute Assessment & Plan narrative: Risks and benefits of screening colonoscopy and possible polypectomy were discussed with the patient including risk of bleeding, perforation, need for additional procedures, risks of anesthesia. The patient desires to proceed with the colonoscopy procedure. COVID-19 COVID-19 status: Negative Result date/Date tested (Pos, Neg/Pending): 08/16/20 Time Spent With Patient Time with patient: 15-24 minutes Quality VTE Deep Vein Thrombosis/Pulmonary Embolism Present on Admission: No
--- NOTE | 2020-08-17 14:41 | P.OP.ENDO_ITS ---
Operative Date/Time/Diagnoses Date of procedure: 08/17/20 Time of procedure: 14:41 Pre-op diagnosis: Average risk for colon cancer, never had a screening colonoscopy Post-op diagnosis: other (Normal colon) Procedure & Clinicians Study performed: Colonoscopy Procedural sedation performed by the endoscopist Same procedure as scheduled: Yes Indications: Average risk for colon cancer, never had a screening colonoscopy Surgeon: Genevieve Lozada Procedure Notes SCOAP/Timeout: Performed Procedure in detail: The patient was brought to the room and placed in left lateral decubitus position with all bony prominences padded. A time-out was performed and then the patient was given procedural sedation starting with 2 mg of Versed and 100 mcg of fentanyl. An additional 2 mg of Versed and 50 micro g of fentanyl were given during the procedure. Vitals were monitored throughout the procedure and remained stable. Once adequately sedated, the procedure was begun. A rectal exam was performed revealing no abnormalities. The colonoscope was then introduced to the rectum and advanced to the cecum in the usual fashion. The cecum was identified by the appendiceal orifice, the mucosal tri- fold, and the ileocecal valve. The scope was then retracted while rotating side to side and examining each mucosal fold. At the conclusion of the procedure retroflexion was performed and small grade 1-2 internal hemorrhoids without sti gmata of bleeding were seen. The scope was then withdrawn from the rectum the procedure was concluded. The patient tolerated the procedure well and was transferred to the PACU in stable condition. Scope withdrawal time: 6 Sedation minutes: 10 Findings: internal hemorrhoids Specimen(s): none sent Complications: none Impression: Normal appearing colon Post-procedure Recommendations: Colonscopy in 10 years Follow up: as needed Disposition: PACU
[2020-08-17] MEDS: MIDAZOLAM 5 MG/5 ML VIAL IV (14:49)
[2020-08-17] MEDS: fentaNYL 250 MCG/5 ML INJ IV (14:49)
[2020-08-17 15:00] VITALS: BP 131/58; PULSE 89; RESP 14; TEMP 36.4; O2SAT 96
[2020-08-17 15:05] VITALS: BP 123/61; PULSE 82; RESP 14; O2SAT 97
[2020-08-17 15:10] VITALS: BP 123/88; PULSE 83; RESP 12; O2SAT 98
[2020-08-17 15:15] VITALS: BP 136/64; PULSE 85; RESP 12; TEMP 36.9; O2SAT 97
== END 2020-08-17 15:24 | disposition home or self-care (01) ==
PROVIDERS: PCP Family Medicine; Referring Provider Specialist; Visit Provider Surgery
PROC: 0DJD8ZZ Inspection of Lower Intestinal Tract, Via Natural or Artificial Opening Endoscopic (ICD-10-PCS; CPT 45378; principal; 2020-08-17 14:30)
DX: R10.9 Unspecified abdominal pain (principal); K64.0 First degree hemorrhoids
CPT/HCPCS: 45378; 99152; J2250; J3010

== ENCOUNTER → 2020-09-14 11:11 | Outpatient (CLI) | payer MEDICARE, OTHER, SELFPAY ==
[2019-07-18 08:14] VITALS: BMI 24.7
[2020-09-14 12:21] LABS: Blood Urea Nitrogen 19 mg/dL (7-17); Calcium 9.5 mg/dL (8.4-10.2); Carbon Dioxide 28 mmol/L (22-32); Chloride 103 mmol/L (98-107); Estimated Glomerular Filt Rate > 60.0 mL/min (>60); Glucose 88 mg/dL (80-110); HEMOLYSIS < 15 (0-50); Potassium 4.4 mmol/L (3.4-5.1); Sodium 138 mmol/L (137-145)
== END ==
PROVIDERS: PCP Family Medicine; Referring Provider Specialist; Visit Provider Specialist
DX: R10.9 Unspecified abdominal pain (principal); R31.29 Other microscopic hematuria; R39.89 Other symptoms and signs involving the genitourinary system; R39.9 Unspecified symptoms and signs involving the genitourinary system
CPT/HCPCS: 36415; 80048

== ENCOUNTER → 2020-09-16 12:12 | Outpatient (CLI) | payer MEDICARE, OTHER, SELFPAY ==
[2019-07-18 08:14] VITALS: BMI 24.7
--- NOTE | 2020-09-16 12:26 | DI.CT.S_ITS ---
PROCEDURE: CT ABDOMEN PELVIS WO/W CON INDICATIONS: LUTS/bladder pain/hematuria TECHNIQUE: Optional 5 mm thick noncontrast images acquired from the diaphragm to the symphysis pubis. After the administration of intravenous contrast, 5 mm thick images acquired from the diaphragm to the symphysis pubis after a 10-minute delay. 2 mm thick coronal and sagittal reformats were then performed of the kidneys and ureters. For radiation dose reduction, the following was used: automated exposure control, adjustment of mA and/or kV according to patient size. COMPARISON: None. FINDINGS: Image quality: Excellent. Lung bases: Lung bases are clear. Heart size is normal. Urinary system: Both kidneys are normal in size, without hydronephrosis. Bilateral punctate nonobstructing kidney stones. No perinephric fat stranding. There is normal bilateral renal enhancement. Renal calyces appear normal in morphology when filled with contrast. Opacified portions of both ureters demonstrate normal caliber. Bladder wall thickness is normal. No calcified bladder stones. Other solid organs: Liver is normal in size and enhancement. Gallbladder is unremarkable. Biliary system is non dilated. Pancreas enhances normally. Spleen is normal in size and enhancement. No adrenal nodules. Peritoneum and bowel: Bowel loops demonstrate normal wall thickness and caliber. Diverticulosis. No free fluid or air. Nodes and vessels: No retroperitoneal or mesenteric adenopathy by size criteria. Aorta and inferior vena cava are normal in size. Abdominal wall: No ventral hernias. Pelvis: No pathologic free pelvic fluid. Uterus is absent. No inguinal hernias or adenopathy. Pelvic floor prolapse. Bones: No suspicious bony lesions. L4-L5 DDD. No vertebral body compression fractures. IMPRESSION: 1. Bilateral punctate nonobstructing kidney stones seen. No hydronephrosis. 2. No upper urinary tract filling defect. 3. Diverticulosis. Dictated by: Kaushal Calvillo M.D. on 09/16/2020 at 18:23 Approved by: Kaushal Calvillo M.D. on 09/16/2020 at 18:28
== END ==
PROVIDERS: PCP Family Medicine; Referring Provider Specialist; Visit Provider Specialist
DX: R31.29 Other microscopic hematuria (principal); R39.89 Other symptoms and signs involving the genitourinary system; R39.9 Unspecified symptoms and signs involving the genitourinary system
CPT/HCPCS: 74178; Q9967

== ENCOUNTER → 2020-12-31 16:38 | Outpatient (CLI) | payer MEDICARE, OTHER, SELFPAY ==
[2019-07-18 08:14] VITALS: BMI 24.7
--- NOTE | 2020-12-31 | DI.MG.S_ITS ---
BILATERAL DIGITAL SCREENING MAMMOGRAM 3D/2D WITH CAD: 12/31/2020 CLINICAL: Routine screening. Comparison is made to exams dated: 07/26/2020 ultrasound, 07/26/2020 mammogram, 12/05/2019 ultrasound, and 12/05/2019 mammogram - [facility]. There are scattered fibroglandular elements in both breasts. Current study was also evaluated with a Computer Aided Detection (CAD) system. There are benign calcifications in the left breast. There are mole markers on the right breast. No significant masses, calcifications, or other findings are seen in either breast. There has been no significant interval change. IMPRESSION: BENIGN There is no mammographic evidence of malignancy. A 1 year screening mammogram is recommended. This exam was interpreted at Station ID: [id number]. NOTE: For mammograms, a report in lay terms will be sent to the patient. Approximately 15% of breast malignancies will not be visualized mammographically. In the management of a palpable breast mass, a negative mammogram must not discourage biopsy of a clinically suspicious lesion. Electronically Signed By: Jus Montoya acr/penrad:01/03/2021 07:34:12 copy to: ALONZO WYATT letter sent: Normal Exam ACR BI-RADS Category 2: Benign Finding(s) 3342F
== END ==
PROVIDERS: PCP Family Medicine; Referring Provider Family Medicine; Visit Provider Family Medicine
DX: Z12.31 Encounter for screening mammogram for malignant neoplasm of breast (principal)
CPT/HCPCS: 77063; 77067

== ENCOUNTER → 2021-08-11 10:18 | Outpatient (CLI) | payer MEDICARE, OTHER, SELFPAY ==
[2019-07-18 08:14] VITALS: BMI 24.7
[2021-08-11 11:20] LABS: Add Manual Diff / Slide Review NO; Basophils Absolute Auto 100 /uL (0-100); Basophils Percent Auto 1.2 % (0-2); Eosinophils Absolute Auto 200 /uL (0-450); Eosinophils Percent Auto 3.5 % (2-4); Hematocrit 37.8 % (36-46); Hemoglobin 12.7 g/dL (12.0-16.0); Lymphocytes Absolute Auto 1100 /uL (1100-4500); Lymphocytes Percent Auto 19.4 % (25-40); Mean Corpuscular HGB Conc 33.5 % (30-36); Mean Corpuscular Hemoglobin 29.9 PG (26-34); Mean Corpuscular Volume 89.3 fL (80-100); Monocytes Absolute Auto 700 /uL (0-900); Monocytes Percent Auto 11.2 % (3-14); Neutrophils Absolute Auto 3800 /uL (1500-7000); Neutrophils Percent Auto 64.7 % (50-75); Platelet Count 305 X10^3/uL (150-400); Red Blood Cell Count 4.23 X10^6/uL (4.0-5.2); Red Cell Distribution Width 13.4 % (11.6-14.8); White Blood Cell Count 5.9 X10^3/uL (4.5-11.0)
[2021-08-11 11:39] LABS: Alanine Aminotransferase 21 IU/L (<35); Albumin 4.2 g/dL (3.5-5.0); Albumin Globulin Ratio 1.9 (1.0-2.8); Alkaline Phosphatase 73 U/L (38-126); Aspartate Aminotransferase 26 IU/L (14-36); BUN Creatinine Ratio 20.7 (6-22); Bilirubin Total 0.4 mg/dL (0.2-1.3); Blood Urea Nitrogen 17 mg/dL (7-17); Calcium 9.1 mg/dL (8.4-10.2); Carbon Dioxide 29 mmol/L (22-32); Chloride 105 mmol/L (98-107); Cholesterol 176 mg/dL (140-199); Estimated Glomerular Filt Rate > 60 mL/min (>60); Globulin 2.2 g/dL (1.7-4.1); Glucose 84 mg/dL (80-110); HDL Cholesterol 55 mg/dL (40-60); HEMOLYSIS < 15 (0-50); LDL Cholesterol Calculated 102 mg/dL (<100); Potassium 4.1 mmol/L (3.4-5.1); Sodium 139 mmol/L (137-145); Total Protein 6.4 g/dL (6.3-8.2); Triglycerides 96 mg/dL (35-150)
== END ==
PROVIDERS: PCP Family Medicine; Referring Provider Family Medicine; Visit Provider Family Medicine
DX: I10 Essential (primary) hypertension (principal)
CPT/HCPCS: 36415; 80053; 80061; 85025

== ENCOUNTER 2021-11-30 10:30 | Outpatient (RCR) | payer MEDICARE, OTHER, SELFPAY ==
[2019-07-18 08:14] VITALS: BMI 24.7
--- NOTE | 2021-11-16 15:45 | PT.OIE ---
Current Diagnoses Primary cough headache (11/16/21) Benign paroxysmal vertigo, left ear (11/16/21) Past Medical History (Last Updated 08/19/20 @ 14:40 by Scarlett Cardenas MD) Acne rosacea, erythematous telangiectatic type Arthritis Bladder pain Cellulitis Chicken pox (~1959) Frequent UTI (~1972) Glaucoma (~2012) Hay fever (~2003) Interstitial cystitis (~1969) Lower urinary tract symptoms (LUTS) Measles (~1959) Microscopic hematuria Neck pain (~2013) Osteoarthritis Ovarian cyst (~1979) Pain of right thumb Pneumothorax Raynauds disease (~2011) Recurrent sinusitis (~1995) Skin cancer, basal cell (~2009) Past Surgical History (Last Reviewed 08/19/20 @ 14:39 by Scarlett Cardenas MD) History of bilateral salpingo-oophorectomy (BSO) History of tonsillectomy Status post appendectomy Status post dilation and curettage Status post dilation and curettage Status post dilation and curettage Status post hysterectomy Status post tubal ligation Visit Care Team Role Provider Type Nolan Wood DO Family Provider Physician Primary Care Provider Specialty: Family Practice Address: [address] [place] [address] Email: Dax Ng MD Attending Provider Physician Referring Provider Specialty: Ear, Nose, Throat Address: [address] [place] [address], [facility] Email: [email or web address] Physical Therapy Initial Evaluation PT-OP-A Visit Information Start: 11/14/21 15:58 Freq: Status: Active Protocol: Document 11/16/21 13:00 AMB (Rec: 11/16/21 13:33 AMB [id number]) Out-Patient Physical Therapy Visit Information Visit Information Visit Type Initial Evaluation Visit Start Time 13:00 Visit Stop Time 13:45 Total Visit Minutes 45 Visit Number 1 PT-OP-B Current Condition Start: 11/14/21 15:58 Freq: Status: Active Protocol: Document 11/16/21 13:00 AMB (Rec: 11/16/21 13:33 AMB [id number]) Current Condition History of Current Condition Onset Date one month ago Current Complaints dizziness History of Current Condition Pt reports one month history of off and on dizziness. Getting better, but getting up and out of bed, very slow still. Was nauseous. Did have dizziness in 2018 that was fixed with Jaun. Left side per ENT. Personal Factors Other Personal Factors That May Effect Hx neck pain. Therapy/Recovery PT-OP-C Subjective Start: 11/14/21 15:58 Freq: Status: Active Protocol: Document 11/16/21 13:00 AMB (Rec: 11/16/21 15:44 AMB [id number]) Patient Questionnaires Dizziness Handicap Inventory DHI Score 20 DHI Functional Impairment 20 to 39% Impaired (Score 20- 39) PT-OP-O Vestibular Start: 11/14/21 15:58 Freq: Status: Active Protocol: Document 11/16/21 13:00 AMB (Rec: 11/16/21 15:44 AMB [id number]) Vestibular Assessment Positional Testing Barnhill-Hallpike Positive Left,Upbeating,< 60 Seconds PT-OP-T Assessment and Plan Start: 11/14/21 15:58 Freq: Status: Active Protocol: Document 11/16/21 13:00 AMB (Rec: 11/16/21 15:44 AMB [id number]) Physical Therapy Assessment Rehab Potential Rehabilitation Potential Excellent Evaluation Complexity Number of Personal Factors/Comorbidities 0 Number of Body Systems Impaired 1-2 Clinical Presentation at Evaluation Stable Impairments Impairments Functional Activities, Vestibular Goals Two Impairment Dizziness Short Term Goal (STG) Romana will bend down to do yardwork without dizziness. STG Duration 4 weeks Senior Care Goal (LTG) Romana will perform all bed mobility without dizziness LTG Duration 6 weeks One Impairment Barnhill-Hallpike positive Short Term Goal (STG) Romana will show a negative Barnhill -Hallpike STG Duration 4 weeks Assessment Summary Assessment Romana attends physical therapy with positive L Barnhill-Hallpike. Dizziness and torsional nystagmus with position 1 and 3 with first repetition. No dizziness/nystagmus with second repetition indicative of good response to first Juan. Post maneuver precautions explained and written handout provided. To see pt next week to further evaluate dizziness. Physical Therapy Plan Frequency and Duration Frequency of Treatment 1x/Week Duration of Treatment 6 weeks Plan of Care Start Date 11/16/21 Plan of Care End Date 01/02/22 Therapeutic Interventions Therapeutic Interventions Home Exercise Program, Neuromuscular Re-education, Therapeutic Activities, Therapeutic Exercises, Vestibular Rehabilitation Next Visit Focus/Plan Next Note Type Treatment Note Next Visit Plan reassess Luis Aguero
--- NOTE | 2021-11-16 15:45 | PT.OPPOC ---
Physical, Occupational & Speech Therapy At [facility] Current Diagnoses Primary cough headache (11/16/21) Benign paroxysmal vertigo, left ear (11/16/21) Visit Care Team Role Provider Type Nolan Wood DO Family Provider Physician Primary Care Provider Specialty: Family Practice Address: [address] [place] [id number] Email: Dax Ng MD Attending Provider Physician Referring Provider Specialty: Ear, Nose, Throat Address: [address] [place] [address], [id number] Email: [email or web address] Plan Of Care PT-OP-T Assessment and Plan Start: 11/14/21 15:58 Freq: Status: Active Protocol: Document 11/16/21 13:00 AMB (Rec: 11/16/21 15:44 AMB [id number]) Physical Therapy Assessment Rehab Potential Rehabilitation Potential Excellent Evaluation Complexity Number of Personal Factors/Comorbidities 0 Number of Body Systems Impaired 1-2 Clinical Presentation at Evaluation Stable Impairments Impairments Functional Activities, Vestibular Goals Two Impairment Dizziness Short Term Goal (STG) Romana will bend down to do yardwork without dizziness. STG Duration 4 weeks Director Law Enforcement Goal (LTG) Romana will perform all bed mobility without dizziness LTG Duration 6 weeks One Impairment Annel-Hallpike positive Short Term Goal (STG) Romana will show a negative Annel -Hallpike STG Duration 4 weeks Assessment Summary Assessment Romana attends physical therapy with positive L Alpine-Hallpike. Dizziness and torsional nystagmus with position 1 and 3 with first repetition. No dizziness/nystagmus with second repetition indicative of good response to first Juan. Post maneuver precautions explained and written handout provided. To see pt next week to further evaluate dizziness. Physical Therapy Plan Frequency and Duration Frequency of Treatment 1x/Week Duration of Treatment 6 weeks Plan of Care Start Date 11/16/21 Plan of Care End Date 01/02/22 Therapeutic Interventions Therapeutic Interventions Home Exercise Program, Neuromuscular Re-education, Therapeutic Activities, Therapeutic Exercises, Vestibular Rehabilitation Next Visit Focus/Plan Next Note Type Treatment Note Next Visit Plan reassess L Alpine Hallpike Plan of Care Dates Plan of Care Start Date 11/16/21 Plan of Care End Date 01/02/22 Electronically Signed by: Candice Kapoor, PT 11/16/21 [id number] If you are in agreement with this Plan of Care, please return a signed and dated copy. I have reviewed this Plan of Care and certify that the skilled therapy services above are required to meet the patient?s needs. Physician Signature Date Printed Name and Credentials Clinical Instructor Signature Printed Name and Credentials
--- NOTE | 2021-11-23 13:01 | PT.OTN ---
Current Diagnoses Primary cough headache (11/23/21) Benign paroxysmal vertigo, left ear (11/23/21) Physical Therapy Treatment Note PT-OP-A Visit Information Start: 11/14/21 15:58 Freq: Status: Active Protocol: Document 11/23/21 10:33 AMB (Rec: 11/23/21 11:01 AMB [id number]) Out-Patient Physical Therapy Visit Information Visit Information Visit Type Treatment Note Visit Start Time 10:30 Visit Stop Time 11:15 Total Visit Minutes 45 Visit Number 2 PT-OP-B Current Condition Start: 11/14/21 15:58 Freq: Status: Active Protocol: Document 11/16/21 13:00 AMB (Rec: 11/16/21 13:33 AMB [id number]) Current Condition History of Current Condition Onset Date one month ago Current Complaints dizziness History of Current Condition Pt reports one month history of off and on dizziness. Getting better, but getting up and out of bed, very slow still. Was nauseous. Did have dizziness in 2018 that was fixed with Juan. Left side per ENT. Personal Factors Other Personal Factors That May Effect Hx neck pain. Therapy/Recovery PT-OP-C Subjective Start: 11/14/21 15:58 Freq: Status: Active Protocol: Document 11/16/21 13:00 AMB (Rec: 11/16/21 15:44 AMB [id number]) Patient Questionnaires Dizziness Handicap Inventory DHI Score 20 DHI Functional Impairment 20 to 39% Impaired (Score 20- 39) PT-OP-O Vestibular Start: 11/14/21 15:58 Freq: Status: Active Protocol: Document 11/16/21 13:00 AMB (Rec: 11/16/21 15:44 AMB [id number]) Vestibular Assessment Positional Testing Annel-Hallpike Positive Left,Upbeating,< 60 Seconds PT-OP-Q Treatments Start: 11/14/21 15:58 Freq: Status: Active Protocol: Document 11/23/21 10:30 AMB (Rec: 11/23/21 12:57 AMB [id number]) Neuro Re-Education Treatment Vestibular Rehabilitation VOR Retraining Comments arm length, slow, seated then NBOS Other Activities Retest Comments Dix_Hallpike and supine roll test all negative for nystagmus or dizziness PT-OP-T Assessment and Plan Start: 11/14/21 15:58 Freq: Status: Active Protocol: Document 11/23/21 10:33 AMB (Rec: 11/23/21 11:01 [facility] [id number]) Physical Therapy Assessment Goals Two Impairment Dizziness Short Term Goal (STG) Romana will bend down to do yardwork without dizziness. 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 Given VOR exercises and further discussed BPPV, to follow up in one week. Physical Therapy Plan Frequency and Duration Frequency of Treatment 1x/Week Duration of Treatment 6 weeks Plan of Care Start Date 11/16/21 Plan of Care End Date 01/02/22 Next Visit Focus/Plan Next Note Type Treatment Note Next Visit Plan reassess Luis Aguero
--- NOTE | 2021-11-30 11:04 | PT.OTN ---
Current Diagnoses Primary cough headache (11/30/21) Benign paroxysmal vertigo, left ear (11/30/21) Physical Therapy Treatment Note PT-OP-A Visit Information Start: 11/14/21 15:58 Freq: Status: Active Protocol: Document 11/30/21 10:31 AMB (Rec: 11/30/21 11:04 AMB [id number]) Out-Patient Physical Therapy Visit Information Visit Information Visit Type Treatment Note Visit Start Time 10:30 Visit Stop Time 11:15 Total Visit Minutes 45 Visit Number 3 PT-OP-B Current Condition Start: 11/14/21 15:58 Freq: Status: Active Protocol: Document 11/16/21 13:00 AMB (Rec: 11/16/21 13:33 AMB [id number]) Current Condition History of Current Condition Onset Date one month ago Current Complaints dizziness History of Current Condition Pt reports one month history of off and on dizziness. Getting better, but getting up and out of bed, very slow still. Was nauseous. Did have dizziness in 2018 that was fixed with Juan. Left side per ENT. Personal Factors Other Personal Factors That May Effect Hx neck pain. Therapy/Recovery PT-OP-C Subjective Start: 11/14/21 15:58 Freq: Status: Active Protocol: Document 11/30/21 10:31 AMB (Rec: 11/30/21 11:04 AMB [id number]) OP-PT Subjective Patient Comments Patient Comments Romana is doing well, has returned to all activities without dizziness. PT-OP-O Vestibular Start: 11/14/21 15:58 Freq: Status: Active Protocol: Document 11/16/21 13:00 AMB (Rec: 11/16/21 15:44 AMB [id number]) Vestibular Assessment Positional Testing Greer-Hallpike Positive Left,Upbeating,< 60 Seconds PT-OP-Q Treatments Start: 11/14/21 15:58 Freq: Status: Active Protocol: Document 11/30/21 10:31 AMB (Rec: 11/30/21 11:04 AMB [id number]) Neuro Re-Education Treatment Other Activities Retest Comments Dix_Hallpike and supine roll test all negative for nystagmus or dizziness PT-OP-T Assessment and Plan Start: 11/14/21 15:58 Freq: Status: Active Protocol: Document 11/30/21 10:31 AMB (Rec: 11/30/21 11:04 AMB [id number]) Physical Therapy Assessment Goals Two Impairment Dizziness Short Term Goal (STG) Romana will bend down to do yardwork without dizziness. STG Duration MET Prison Goal (LTG) Romana will perform all bed mobility without dizziness LTG Duration MET One Impairment Annel-Hallpike positive Short Term Goal (STG) Romana will show a negative Greer -Hallpike STG Duration MET Assessment Summary Assessment Romana is doing well, no signs and symptoms of BPPV at this time. Did warn her that since she has had two seperate instances of BPPV a recurrance in a few years is possible. Physical Therapy Plan Discharge Physical Therapy Discharge Reasons Goals Met
--- NOTE | 2021-11-30 11:04 | PT.OPDS ---
Current Diagnoses Primary cough headache (11/30/21) Benign paroxysmal vertigo, left ear (11/30/21) Visit Care Team Role Provider Type Nolan Wood DO Family Provider Physician Primary Care Provider Specialty: Family Practice Address: [address] [place] [address], [id number] Email: Dax Ng MD Attending Provider Physician Referring Provider Specialty: Ear, Nose, Throat Address: [address] [place] [address], [id number] Email: [email or web address] Visit Number Visit Number 3 Discharge Summary PT-OP-B Current Condition Start: 11/14/21 15:58 Freq: Status: Active Protocol: Document 11/16/21 13:00 AMB (Rec: 11/16/21 13:33 AMB [id number]) Current Condition History of Current Condition Onset Date one month ago Current Complaints dizziness History of Current Condition Pt reports one month history of off and on dizziness. Getting better, but getting up and out of bed, very slow still. Was nauseous. Did have dizziness in 2018 that was fixed with Juan. Left side per ENT. Personal Factors Other Personal Factors That May Effect Hx neck pain. Therapy/Recovery PT-OP-C Subjective Start: 11/14/21 15:58 Freq: Status: Active Protocol: Document 11/30/21 10:31 AMB (Rec: 11/30/21 11:04 AMB [id number]) OP-PT Subjective Patient Comments Patient Comments Romana is doing well, has returned to all activities without dizziness. PT-OP-O Vestibular Start: 11/14/21 15:58 Freq: Status: Active Protocol: Document 11/16/21 13:00 AMB (Rec: 11/16/21 15:44 AMB [id number]) Vestibular Assessment Positional Testing Annel-Hallpike Positive Left,Upbeating,< 60 Seconds PT-OP-T Assessment and Plan Start: 11/14/21 15:58 Freq: Status: Active Protocol: Document 11/30/21 10:31 AMB (Rec: 11/30/21 11:04 AMB [id number]) Physical Therapy Assessment Goals Two Impairment Dizziness Short Term Goal (STG) Romana will bend down to do yardwork without dizziness. STG Duration MET Social Organization Professor Goal (LTG) Romana will perform all bed mobility without dizziness LTG Duration MET One Impairment [place]-Hallpike positive Short Term Goal (STG) Romana will show a negative [place] -Hallpike STG Duration MET Assessment Summary Assessment Romana is doing well, no signs and symptoms of BPPV at this time. Did warn her that since she has had two seperate instances of BPPV a recurrance in a few years is possible. Physical Therapy Plan Discharge Physical Therapy Discharge Reasons Goals Met
== END 2021-12-01 14:16 ==
LOC: PHYS 10:30
PROVIDERS: Family Provider Family Medicine; PCP Family Medicine; Referring Provider Otolaryngology; Visit Provider Otolaryngology
DX: G44.83 Primary cough headache (principal); H81.12 Benign paroxysmal vertigo, left ear
CPT/HCPCS: 97112; 97161

== ENCOUNTER → 2022-01-17 13:53 | Outpatient (CLI) | payer MEDICARE, OTHER, SELFPAY ==
[2019-07-18 08:14] VITALS: BMI 24.7
--- NOTE | 2022-01-17 13:56 | DI.MG.S_ITS ---
BILATERAL DIGITAL SCREENING MAMMOGRAM 3D/2D WITH CAD: 01/17/2022 CLINICAL: Routine screening. Comparison is made to exams dated: 12/31/2020 mammogram, 07/26/2020 mammogram, 12/01/2019 mammogram, and 10/24/2018 mammogram - [facility]. There are scattered areas of fibroglandular density in both breasts (category b / 25%-50% glandular tissue). Current study was also evaluated with a Computer Aided Detection (CAD) system. There are benign calcifications in the left breast. There are mole markers on the right breast. No significant masses, calcifications, or other findings are seen in either breast. There has been no significant interval change. IMPRESSION: BENIGN There is no mammographic evidence of malignancy. A 1 year screening mammogram is recommended. Based on the Tyrer Cuzick model (a risk assessment model) the patient's lifetime risk is 2.9% and her 10 year risk is 1.7%. According to the ACR, ACS, and NCCN guidelines, an annual breast MRI exam along with mammogram is recommended if the patient's lifetime risk is 20% or greater. This exam was interpreted at Station ID: [id number]. NOTE: For mammograms, a report in lay terms will be sent to the patient. Approximately 15% of breast malignancies will not be visualized mammographically. In the management of a palpable breast mass, a negative mammogram must not discourage biopsy of a clinically suspicious lesion. Electronically Signed By: Jimenez [email or web address]/andre:01/17/2022 14:51:56 copy to: ALONZO WYATT letter sent: Normal Exam ACR BI-RADS Category 2: Benign Finding(s) [id number]
== END ==
PROVIDERS: Family Provider Family Medicine; PCP Family Medicine; Referring Provider Family Medicine; Visit Provider Family Medicine
DX: Z12.31 Encounter for screening mammogram for malignant neoplasm of breast (principal)
CPT/HCPCS: 77063; 77067

== ENCOUNTER → 2022-09-26 14:13 | Outpatient (CLI) | payer MEDICARE, OTHER, SELFPAY ==
[2019-07-18 08:14] VITALS: BMI 24.7
--- NOTE | 2022-09-26 14:52 | DI.DEXA.S_ITS ---
Bone Density Report Name: JAQUAN JOHN Age: 71 Sex: Female Ethnicity: White Date of : 1950 Indication: postmenopausal; screening for osteoporosis; Referring Provider: ALONZO WYATT D.O. Study: Bone densitometry was performed. Exam Date: September 26, 2022 Accession number: [id number] Bone Density: Region BMD T-score Z-score Classification AP Spine(L1-L4) 0.980 -0.6 1.5 Normal Femoral Neck (Left) 0.724 -1.1 0.7 Osteopenia Total Hip (Left) 0.846 -0.8 0.7 Normal Femoral Neck (Right) 0.777 -0.6 1.1 Normal Total Hip (Right) 0.911 -0.3 1.2 Normal Total Hip Mean 0.879 -0.6 1.0 Normal World Health Organization criteria for BMD impression classify patients as: Normal (T-score at or above -1.0), Osteopenia (T-score between -1.0 and -2.5), or Osteoporosis (T-score at or below -2.5). 10-year Fracture Risk(1): Major Osteoporotic Fracture 8.3% Hip Fracture 1.0% Reported Risk Factors: [place] (), Neck BMD=0.724, BMI=22.1 (1) FRAX(R) Version 3.08. Fracture probability calculated for an untreated patient. Fracture probability may be lower if the patient has received treatment. Impression: The patient has low bone mass, based on the Left Femoral Neck T-score. The patient has an estimated ten-year risk of hip fracture of 1% and an estimated ten-year risk of major fracture of 8.3%, based on the WHO FRAX algorithm. Discussion: BONE DENSITY IS LOW AT ONE OR MORE SKELETAL SITES. This patient's lowest T-score is low at one or more skeletal sites. It meets the World Health Organization's (WHO) criteria for ?low bone mass? (T-score between -1.0 and -2.5). The patient's 10-year risk of fracture as calculated by FRAX is less than the threshold where pharmacological therapy is recommended by the National Osteoporosis Foundation (NOF). However, all treatment decisions require clinical judgment and consideration of individual patient factors, including patient preferences, comorbidities, previous drug use, risk factors not captured in the FRAX model (e.g., frailty, falls, vitamin D deficiency, increased bone turnover, interval significant decline in bone density) and possible under or overestimation of fracture risk by FRAX. The patient should follow a healthful lifestyle (good nutrition with adequate calcium and vitamin D, and appropriate weight-bearing exercise). Follow-Up: Consider repeating this study in 2 to 3 years to reassess this patient's status, or sooner if there is some new clinical indication. Reported by: MAHAD ZURITA M.D. on 09/26/2022 3:02:00 PM.
== END ==
PROVIDERS: Family Provider Family Medicine; PCP Family Medicine; Referring Provider Family Medicine; Visit Provider Family Medicine
DX: M85.852 Other specified disorders of bone density and structure, left thigh (principal); Z13.820 Encounter for screening for osteoporosis; Z78.0 Asymptomatic menopausal state
CPT/HCPCS: 77080

== ENCOUNTER → 2022-10-19 08:22 | Outpatient (CLI) | payer MEDICARE, OTHER, SELFPAY ==
[2019-07-18 08:14] VITALS: BMI 24.7
[2022-10-19 09:14] LABS: Add Manual Diff / Slide Review NO; Basophils Absolute Auto 100 /uL (0-100); Basophils Percent Auto 0.9 % (0-2); Eosinophils Absolute Auto 200 /uL (0-450); Eosinophils Percent Auto 4.2 % (2-4); Hematocrit 37.5 % (36-46); Hemoglobin 12.7 g/dL (12.0-16.0); Lymphocytes Absolute Auto 900 /uL (1100-4500); Lymphocytes Percent Auto 16.7 % (25-40); Mean Corpuscular Hemoglobin 30.4 PG (26-34); Mean Corpuscular Volume 89.5 fL (80-100); Monocytes Absolute Auto 600 /uL (0-900); Monocytes Percent Auto 10.7 % (3-14); Neutrophils Absolute Auto 3800 /uL (1500-7000); Neutrophils Percent Auto 67.5 % (50-75); Platelet Count 262 X10^3/uL (150-400); Red Blood Cell Count 4.18 X10^6/uL (4.0-5.2); Red Cell Distribution Width 13.4 % (11.6-14.8); White Blood Cell Count 5.7 X10^3/uL (4.5-11.0)
[2022-10-19 09:24] LABS: Alanine Aminotransferase 24 IU/L (<35); Albumin 4.1 g/dL (3.5-5.0); Albumin Globulin Ratio 1.8 (1.0-2.8); Alkaline Phosphatase 75 U/L (38-126); Aspartate Aminotransferase 26 IU/L (14-36); BUN Creatinine Ratio 25.3 (6-22); Bilirubin Total 0.3 mg/dL (0.2-1.3); Blood Urea Nitrogen 20 mg/dL (7-17); Calcium 8.9 mg/dL (8.4-10.2); Carbon Dioxide 30 mmol/L (22-32); Chloride 105 mmol/L (98-107); Cholesterol 185 mg/dL (140-199); Estimated Glomerular Filt Rate > 60 mL/min (>60); Globulin 2.3 g/dL (1.7-4.1); Glucose 86 mg/dL (80-110); HDL Cholesterol 53 mg/dL (40-60); HEMOLYSIS < 15 (0-50); LDL Cholesterol Calculated 94 mg/dL (<100); Potassium 4.2 mmol/L (3.4-5.1); Sodium 139 mmol/L (137-145); Total Protein 6.4 g/dL (6.3-8.2); Triglycerides 188 mg/dL (35-150)
== END ==
PROVIDERS: Family Provider Family Medicine; PCP Family Medicine; Referring Provider Family Medicine; Visit Provider Family Medicine
DX: I10 Essential (primary) hypertension (principal)
CPT/HCPCS: 36415; 80053; 80061; 85025

== ENCOUNTER → 2023-02-23 15:09 | Outpatient (CLI) | payer MEDICARE, OTHER, SELFPAY ==
[2019-07-18 08:14] VITALS: BMI 24.7
--- NOTE | 2023-02-23 | DI.MG.S_ITS ---
BILATERAL DIGITAL SCREENING MAMMOGRAM 3D/2D WITH CAD: 02/23/2023 CLINICAL: Routine screening. Comparison is made to exams dated: 01/17/2022 mammogram, 12/31/2020 mammogram, 07/26/2020 mammogram, 12/05/2019 mammogram, and 12/01/2019 mammogram - [facility]. Both breasts are heterogeneously dense, which may obscure small masses (category c / 51-75% glandular tissue). Current study was also evaluated with a Computer Aided Detection (CAD) system. There are benign calcifications in the left breast. There are mole markers on the right breast. No significant masses, calcifications, or other findings are seen in either breast. There has been no significant interval change. IMPRESSION: BENIGN There is no mammographic evidence of malignancy. A 1 year screening mammogram is recommended. Based on the Tyrer Cuzick model (a risk assessment model) the patient's lifetime risk is 4.2% and her 10 year risk is 2.6%. According to the ACR, ACS, and NCCN guidelines, an annual breast MRI exam along with mammogram is recommended if the patient's lifetime risk is 20% or greater. This exam was interpreted at Station ID: [id number]. NOTE: For mammograms, a report in lay terms will be sent to the patient. Approximately 15% of breast malignancies will not be visualized mammographically. In the management of a palpable breast mass, a negative mammogram must not discourage biopsy of a clinically suspicious lesion. Electronically Signed By: Jimenez [email or web address]/andre:02/23/2023 16:11:09 copy to: ALONZO WYATT letter sent: Normal Exam ACR BI-RADS Category 2: Benign Finding(s) [id number]
== END ==
PROVIDERS: Family Provider Family Medicine; PCP Family Medicine; Referring Provider Family Medicine; Visit Provider Family Medicine
DX: Z12.31 Encounter for screening mammogram for malignant neoplasm of breast (principal)
CPT/HCPCS: 77063; 77067

== ENCOUNTER → 2023-09-24 15:40 | Outpatient (CLI) | payer MEDICARE, OTHER, SELFPAY ==
[2019-07-18 08:14] VITALS: BMI 24.7
[2023-09-24 18:54] LABS: Creatinine Urine Random 21.51 mg/dL
[2023-09-24 19:02] LABS: Microalbumin Urine Random < 0.6 mg/dL (0-1.6)
== END ==
PROVIDERS: Family Provider Family Medicine; PCP Family Medicine; Referring Provider Family Medicine; Visit Provider Family Medicine
DX: I10 Essential (primary) hypertension (principal)
CPT/HCPCS: 82043; 82570

== ENCOUNTER → 2024-03-10 16:04 | Outpatient (CLI) | payer MEDICARE, OTHER, SELFPAY ==
[2019-07-18 08:14] VITALS: BMI 24.7
--- NOTE | 2024-03-10 | DI.MG.S_ITS ---
BILATERAL DIGITAL SCREENING MAMMOGRAM 3D/2D WITH CAD: 03/10/2024 CLINICAL: Routine screening. Comparison is made to exams dated: 02/23/2023 mammogram, 01/17/2022 mammogram, 12/31/2020 mammogram, 07/26/2020 mammogram, 12/05/2019 mammogram, and 12/01/2019 mammogram - [facility]. The breasts are heterogeneously dense, which may obscure small masses (category c / 51-75% glandular tissue). Current study was also evaluated with a Computer Aided Detection (CAD) system. No significant masses, calcifications, or other findings are seen in either breast. There has been no significant interval change. IMPRESSION: NEGATIVE There is no mammographic evidence of malignancy. A 1 year screening mammogram is recommended. Based on the Tyrer Cuzick model (a risk assessment model) the patient's lifetime risk is 4.0% and her 10 year risk is 2.7%. According to the ACR, ACS, and NCCN guidelines, an annual breast MRI exam along with mammogram is recommended if the patient's lifetime risk is 20% or greater. This exam was interpreted at Station ID: [id number]. NOTE: For mammograms, a report in lay terms will be sent to the patient. Approximately 15% of breast malignancies will not be visualized mammographically. In the management of a palpable breast mass, a negative mammogram must not discourage biopsy of a clinically suspicious lesion. Electronically Signed By: Elena Galarza M.D., Ph.D. shawna/andre:03/12/2024 16:54:46 copy to: ALONZO WYATT letter sent: Normal Exam ACR BI-RADS Category 1: Negative
== END ==
LOC: MAMMO 16:05
PROVIDERS: Family Provider Family Medicine; PCP Family Medicine; Referring Provider Family Medicine; Visit Provider Family Medicine
DX: Z12.31 Encounter for screening mammogram for malignant neoplasm of breast (principal); R92.333 Mammographic heterogeneous density, bilateral breasts
CPT/HCPCS: 77063; 77067

== ENCOUNTER → 2024-04-02 16:28 | Outpatient (CLI) | payer MEDICARE, OTHER, SELFPAY ==
[2019-07-18 08:14] VITALS: BMI 24.7
[2024-04-02 17:50] LABS: Add Manual Diff / Slide Review NO; Basophils Absolute Auto 100 /uL (0-100); Basophils Percent Auto 0.8 % (0-2); Eosinophils Absolute Auto 200 /uL (0-450); Eosinophils Percent Auto 2.3 % (2-4); Hematocrit 39.2 % (36-46); Lymphocytes Absolute Auto 1000 /uL (1100-4500); Lymphocytes Percent Auto 12.3 % (25-40); Mean Corpuscular HGB Conc 33.2 % (30-36); Mean Corpuscular Hemoglobin 30.2 PG (26-34); Mean Corpuscular Volume 91.1 fL (80-100); Monocytes Absolute Auto 600 /uL (0-900); Monocytes Percent Auto 7.7 % (3-14); Neutrophils Absolute Auto 6500 /uL (1500-7000); Neutrophils Percent Auto 76.9 % (50-75); Platelet Count 292 X10^3/uL (150-400); Red Cell Distribution Width 13.3 % (11.6-14.8); White Blood Cell Count 8.4 X10^3/uL (4.5-11.0)
[2024-04-02 18:13] LABS: Alanine Aminotransferase 25 IU/L (<35); Albumin 4.5 g/dL (3.5-5.0); Albumin Globulin Ratio 2.1 (1.0-2.8); Alkaline Phosphatase 87 U/L (38-126); Aspartate Aminotransferase 31 IU/L (14-36); BUN Creatinine Ratio 19.1 (6-22); Bilirubin Total 0.3 mg/dL (0.2-1.3); Blood Urea Nitrogen 17 mg/dL (7-17); Calcium 9.5 mg/dL (8.4-10.2); Carbon Dioxide 28 mmol/L (22-32); Chloride 104 mmol/L (98-107); Estimated Glomerular Filt Rate > 60 mL/min (>60); Globulin 2.1 g/dL (1.7-4.1); Glucose 87 mg/dL (80-110); HEMOLYSIS < 15 (0-50); Lipase 143 U/L (23-300); Potassium 4.6 mmol/L (3.4-5.1); Sodium 138 mmol/L (137-145); Total Protein 6.6 g/dL (6.3-8.2)
== END ==
PROVIDERS: Family Provider Family Medicine; PCP Family Medicine; Referring Provider Physician Assistant; Visit Provider Physician Assistant
DX: R10.11 Right upper quadrant pain (principal)
CPT/HCPCS: 36415; 80053; 83690; 85025

== ENCOUNTER → 2024-04-21 15:30 | Outpatient (CLI) | payer MEDICARE, OTHER, SELFPAY ==
[2019-07-18 08:14] VITALS: BMI 24.7
--- NOTE | 2024-04-21 15:32 | DI.US.S_ITS ---
PROCEDURE: US ABDOMEN COMPLETE INDICATIONS: ruq and rlq pain X 1 yr terence after meals TECHNIQUE: Real-time scanning was performed of the abdominal and retroperitoneal organs, with image documentation. COMPARISON: [facility], , US ABDOMEN COMPLETE, 09/06/2017, 13:41. FINDINGS: Liver: Liver is normal in size and homogeneous in echotexture. Gallbladder: Cholelithiasis without gallbladder wall thickening or pericholecystic fluid Biliary ducts: Intrahepatic bile ducts are non-dilated. Extrahepatic bile duct caliber measures 3.1 mm. Normal is 6-7 mm or less in diameter, or 10 mm or less post-cholecystectomy. Pancreas: Visualized portions of the pancreas are sonographically normal. Spleen: Spleen is normal in size and homogeneous in echotexture. Kidneys: Kidneys are normal in size and echotexture. Right kidney measures 8.5 cm long; left kidney measures 7.6 cm long. No hydronephrosis. Nonobstructing calculus noted in the upper pole of the right kidney measures 4 mm. No solid masses. Aorta: Visualized aorta is normal in caliber at less than 3 cm. Iliacs: Proximal common iliac arteries are normal in caliber at less than 2.5 cm. IVC: Intrahepatic inferior vena cava is patent. Miscellaneous: No free abdominal fluid. IMPRESSION: Cholelithiasis without CT evidence of acute cholecystitis Approved by: Noe Good M.D. on 04/22/2024 at 17:34
== END ==
PROVIDERS: Family Provider Family Medicine; PCP Family Medicine; Referring Provider Physician Assistant; Visit Provider Physician Assistant
DX: K80.20 Calculus of gallbladder without cholecystitis without obstruction (principal); N20.0 Calculus of kidney; R10.9 Unspecified abdominal pain
CPT/HCPCS: 76700

== ENCOUNTER → 2025-04-06 16:04 | Outpatient (CLI) | payer MEDICARE, OTHER, SELFPAY ==
[2019-07-18 08:14] VITALS: BMI 24.7
--- NOTE | 2025-04-06 16:05 | DI.MG.S_ITS ---
MM screening mammo BI: 04/06/2025. BI-RADS: 1 CLINICAL: 74-year old female for bilateral screening mammogram. Tyrer-Cuzick lifetime risk of 2.7%. No personal or first-degree family history of breast cancer. PRIOR EXAMS 03/10/2024, 02/23/2023, 01/17/2022, 12/31/2020. MAMMOGRAPHY TECHNIQUE: 2D and 3D (tomosynthesis) digital mammographic views obtained, with additional images as needed for full coverage. Current study was also evaluated with a Computer Aided Detection (CAD) system. DENSITY C. The breasts are heterogeneously dense, which may obscure small masses. MAMMOGRAPHY FINDINGS Bilateral: No suspicious mass, asymmetry, microcalcification, or other abnormality seen. No significant change from comparison. IMPRESSION: * No evidence of malignancy. RECOMMENDATIONS Bilateral * Annual screening mammography. OVERALL ASSESSMENT CATEGORY BI-RADS-1: Negative. The [employer] recommends annual screening mammography beginning at age 40 for women with average risk of breast cancer. ELECTRONICALLY SIGNED: Arnie Stephens M.D. on 04/07/2025 at 10:19:00 AM PT Interpreting Station ID: [id number]
== END ==
LOC: MAMMO 16:05
PROVIDERS: PCP Family Medicine; Referring Provider Family Medicine; Visit Provider Family Medicine
DX: Z12.31 Encounter for screening mammogram for malignant neoplasm of breast (principal); R92.333 Mammographic heterogeneous density, bilateral breasts
CPT/HCPCS: 77063; 77067